=== PATIENT | male | born 1980 | race Caucasian/White ===

== ENCOUNTER 2022-03-07 13:44 | Emergency (ER) | payer MEDICAID, SELFPAY ==
--- NOTE | ~2022-03-07 | XR_ITS ---
EXAMINATION: XR KNEE, LEFT CLINICAL INFORMATION: Knee injury COMPARISON: None TECHNIQUE: Four views of the left knee. FINDINGS: Bones and soft tissues are normal. No fracture or joint effusion. Alignment is anatomic. Joint spaces are well maintained. No abnormal soft tissue calcification. XR/XR knee LT 4V IMPRESSION: Normal left knee.
[2022-03-07 14:38] VITALS: BP 126/92; PULSE 82; RESP 18; O2SAT 98; BMI 30.5
--- NOTE | 2022-03-07 14:45 | ED_ITS ---
HPI - Extremity Injury (Lower) General Chief Complaint: Extremity Injury, Lower Stated Complaint: l knee inj at work Time Seen by Provider: 03/07/22 17:05 Source: patient Mode of arrival: ambulatory Limitations: no limitations History of Present Illness HPI Narrative: 41 yold male presents to ED for left knee pain after injury that occurred on work on Friday. Patient states his left knee by accident with hammer. Patient denies any other trauma. Related Data Previous Rx's Medication Instructions Recorded naproxen 500 mg tablet 500 mg PO BID PRN pain 7 days #14 03/07/22 tabs prednisone 20 mg tablet 40 mg PO DAILY 5 days #10 tabs 03/07/22 Allergies Allergy/AdvReac Type Severity Reaction Status Date / Time No Known Allergies Allergy Verified 03/07/22 16:07 Review of Systems Review of Systems: left knee pain Yes all other systems are reviewed and are negative [facility] Social History Social History Advance Directives: No Advance Directives Information Provided: No Physical Exam Vital Signs: Vital Signs: Last Vital Signs Pulse 82 03/07/22 14:38 Resp 18 03/07/22 14:38 BP 126/92 H 03/07/22 14:38 Pulse Ox 98 03/07/22 14:38 O2 Del Method 03/07/22 14:38 BMI result Body Mass Index 30.5 Const: General: cooperative, healthy appearing, comfortable, no acute distress, well developed, alert, awake and Physically active Orientation/co nsciousness: oriented to time and patient oriented x3 HEENT: Head: Yes normal to inspection, Yes No palpable skull fracture present, Yes normocephalic, Yes atraumatic and No abrasion Eyes: General: appearance normal, both eyes and all related structures Neck: Neck: Yes normal visual inspection, Yes full ROM, Yes no lymphaden opathy, Yes no meningeal signs, Yes trachea midline, Yes supple, No anterior neck swelling and No tender Chest: Chest palpation & inspection: normal inspection of the chest and normal palpation of entire chest wall Resp: Effort & Inspection: normal respiratory effort and able to speak in com plete sentences Auscultation: clear to auscultation bilaterally Cardio: Jugular venous distension: no JVD Heart sounds: S1 normal heart sound present and S2 normal heart sound present GI: Inspection: Yes normal to inspection and No abdominal wall ecchymosis Palpation (GI): Soft to palpation, not firm, nontender, no guarding and not rigid : General: No CVA tenderness and Yes no CVA tenderness Back/Spine/Pelvis: Back: no CVA tenderness, No CVA tenderness and No back tenderness Skin: General skin exam: no rashes or lesions noted and elasticity normal Neuro: General: oriented to time, patient oriented x3, gait normal, tone normal and no meningeal signs Extrem: General: Yes normal to inspection and Yes full ROM Knee images: 1. Tenderness on palpation. Negative for swelling, erythema, or deformity. Complete range of motion. Motor/neuro/vascular exam intact Psych: Appearance: grossly normal, well kempt and not disheveled Course Course Course Narrative: RME: patient presents for left knee injury at work involving a hammer. Patient denies any other trauma. Xray ordered Reevaluation(s) Reevaluation #1: Xray normal. patient discharged with pain meds and informed to follow up with pCP for possible MRI if no improvement Time: 17:07 Discharge Plan Discharge Clinical Impression: Knee sprain Patient Disposition: Home, Self-Care Instructions: Knee Sprain (ED) Additional Instructions: Return to the ED immediately for any knee swelling, redness, inability to walk, bluish black discoloration, leg swelling, calf pain, fever, chills, chest pain, shortness of breath, numbness/tingling lower extremity, or any other concerning symptoms. Please follow-up with the primary care provider for re-evaluation for possible MRI if no improvement. Recommend rest, elevation, and ice Prescriptions: New naproxen 500 mg tablet 500 mg PO BID PRN (Reason: pain) 7 Days Qty: 14 0RF prednisone 20 mg tablet 40 mg PO DAILY 5 Days Qty: 10 0RF Stand Alone Forms: Work/School Release Interventions: ED Discharge Assessment Last Done: 03/07/22 17:21 Discharge Date/Time: 03/07/22 17:26 Print Language: Honduran
== END 2022-03-07 17:26 | disposition home or self-care (01) ==
LOC: HO.ED 17:24
PROVIDERS: Emergency Provider Emergency Medicine
DX: S83.92XA Sprain of unspecified site of left knee, initial encounter (principal); W22.8XXA Striking against or struck by other objects, initial encounter; Y93.H3 Activity, building and construction; Y92.61 Building [any] under construction as the place of occurrence of the external cause; Y99.0 Civilian activity done for income or pay
CPT/HCPCS: 73564; 99282; 99283

== ENCOUNTER 2022-05-29 15:43 | Emergency (ER) | payer MEDICAID, SELFPAY ==
--- NOTE | ~2022-05-29 | CT_ITS ---
EXAMINATION: CT ABDOMEN AND PELVIS WITHOUT CONTRAST CLINICAL INFORMATION: Lower abdominal pain COMPARISON: None TECHNIQUE: Multidetector volumetric imaging was performed from the superior aspect of the liver through the pubic symphysis. Sagittal and coronal reformatted images were obtained on the technologist's workstation. This CT examination was performed using dose optimization techniques as appropriate, variously including the following: *Automated exposure control *Adjustment of mA and/or kV according to patient size (this includes techniques or standardized protocols for targeted exams where dose is matched to indication/reason for exam; i.e. extremities or head) *Use of iterative reconstruction technique DLP: 625 mGy-cm FINDINGS: LUNG BASES: The visualized lung bases are unremarkable. LIVER, GALLBLADDER, AND BILIARY TREE: Liver is at the upper limits normal in size. Normal hepatic attenuation. No liver lesion or biliary ductal dilation. The gallbladder is unremarkable with no evidence of radiopaque gallstones, gallbladder wall thickening, or obvious pericholecystic inflammatory changes. PANCREAS: Unremarkable. SPLEEN: Unremarkable. ADRENAL GLANDS: Unremarkable. KIDNEYS AND URETERS: The kidneys are normal in size, shape, and attenuation. No hydronephrosis, hydroureter, or calculi seen. No perinephric stranding. BLADDER: Unremarkable. GASTROINTESTINAL TRACT: There are prominent but not frankly dilated small bowel loops in the left hemiabdomen with minimal nonspecific adjacent mesenteric edema. No appreciable bowel wall thickening. No pneumatosis. No frankly dilated bowel loops. No colonic wall thickening or pericolonic inflammatory change. Normal appendix. No intra-abdominal free air. Small amount of simple free pelvic fluid/pelvic ascites. ABDOMINAL WALL: No significant hernia is appreciated. LYMPH NODES: No lymphadenopathy. VASCULAR: Unremarkable. PELVIC VISCERA: Unremarkable. OSSEOUS STRUCTURES: No acute fracture or suspicious osseous lesion. CT/CT abdomen pelvis wo IV con IMPRESSION: 1. Prominent but not frankly dilated small bowel loops in the left hemiabdomen with minimal adjacent mesenteric edema. Findings are nonspecific and could be due to mild enteritis or mild ileus. No appreciable bowel wall thickening or pneumatosis. 2. Small amount of simple free pelvic fluid/pelvic ascites. 3. No other acute intra-abdominal process identified.
[2022-05-29 16:18] VITALS: BP 131/84; PULSE 87; RESP 16; TEMP 36.8; O2SAT 97; BMI 29.5
--- NOTE | 2022-05-29 16:20 | ED_ITS ---
HPI - Abdominal Pain General Chief Complaint: Abdominal Pain <NADEEM Morelos - Last Filed: 05/29/22 16:24> Stated Complaint: acid reflux, stomachache <NADEEM Morelos - Last Filed: 05/29/22 16:24> Time Seen by Provider: 05/29/22 20:49 <NADEEM Morelos - Last Filed: 05/29/22 16:24> Source: patient <Rosa Landers MD - Last Filed: 05/29/22 21:45> Mode of arrival: ambulatory <Rosa Landers MD - Last Filed: 05/29/22 21:45> History of Present Illness HPI narrative: 41-year-old male who has been experiencing intermittent crampy abdominal discomfort that is not associated with food intake/fever/chills/nausea/vo miting/diarrhea/dysuria. <Rosa Landers MD - Last Filed: 05/29/22 21:45> Related Data Home Medications: Previous Rx's Medication Instructions Recorded naproxen 500 mg tablet 500 mg PO BID PRN pain 7 days #14 03/07/22 tabs prednisone 20 mg tablet 40 mg PO DAILY 5 days #10 tabs 03/07/22 omeprazole 40 mg capsule,delayed 40 mg PO DAILY #30 caps 05/29/22 release <NADEEM Morelos - Last Filed: 05/29/22 16:24> Allergies/Adverse Reactions: Allergies Allergy/AdvReac Type Severity Reaction Status Date / Time No Known Allergies Allergy Verified 03/07/22 16:07 <NADEEM Morelos - Last Filed: 05/29/22 16:24> Review of Systems Review of Systems Pertinent positives and negatives as stated in HPI <Rosa Landers MD - Last Filed: 05/29/22 21:45> PMFSH Past Medical History Source: nursing notes reviewed <Rosa Landers MD - Last Filed: 05/29/22 21:45> Social History Social History: Social History Advance Directives: No Advance Directives Information Provided: No <NADEEM Morelos - Last Filed: 05/29/22 16:24> Physical Exam ED Vital Signs: Vital Signs - 24 hr 05/29/22 16:18 Temperature 98.2 F Pulse Rate 87 Respiratory Rate 16 Blood Pressure 131/84 Pulse Oximetry 97 Oxygen Delivery Method Room Air BMI result Body Mass Index 29.5 <NADEEM Morelos - Last Filed: 05/29/22 16:24> Vital Signs - 24 hr 05/29/22 16:18 Temperature 98.2 F Pulse Rate 87 Respiratory Rate 16 Blood Pressure 131/84 Pulse Oximetry 97 Oxygen Delivery Method Room Air BMI result Body Mass Index 29.5 VITAL SIGNS: Reviewed. GENERAL: Well developed, well nourished, in no acute distress. HEAD: Normocephalic/atraumatic EYES: PERRLA, EOMI LUNGS: Normal breath sounds. No adventitious sounds or accessory muscle use. SpO2<97> CARDIOVASCULAR: Regular rate and rhythm without noted murmurs ABDOMEN: Soft, non-tender, non-distended with bowel sounds. MUSCULOSKELETAL: No tenderness, deformities, or effusions noted on gross inspection. EXTREMITIES: No cyanosis, clubbing or edema. SKIN: Inspection of the skin reveals no rashes NEUROLOGIC: Alert and oriented x 4. Strength and sensation to light touch were grossly intact x 4. <Rosa Landers MD - Last Filed: 05/29/22 21:45> Course Course Course Narrative: RME - 41 [id number] presenting today with complaints of right lower abdominal pain since yesterday. He describes a fullness sensation to his right lower abdomen, with episodes of sharp right lower abdominal pain. No constipation or diarrhea. No urinary symptoms. No fevers, nausea or vomiting. No hx of abdominal surgeries. Abdomen is soft, with mild tenderness to the right lower abdomen. Labs and CT abdomen w/o contrast ordered. VSS in triage. Patient stable to be sent back to the waiting room until a room in the main ER becomes available. <NADEEM Morelos - Last Filed: 05/29/22 16:24> Medical Decision Making Medical Decision Making MDM Narrative: 41-year-old male with history and clinical presentation along with review of all investigations my interpretation is that this patient has mild gastroenteritis with likely concomitant gastritis. He received a GI cocktail but is otherwise been afebrile and no evidence to suggest SBO/appendicitis/renal colic. All results discussed with him at bedside. After receiving the medication he is feeling better. <Rosa Landers MD - Last Filed: 05/29/22 21:45> Differential Diagnosis Differential Diagnoses: The differential diagnosis associated with the presentation includes <Rosa Landers MD - Last Filed: 05/29/22 21:45> Please see the discussion above <Rosa Landers MD - Last Filed: 05/29/22 21:45> Lab Data MDM Lab Attestation statement: I reviewed the patient's lab results. <Rosa Landers MD - Last Filed: 05/29/22 21:45> Please see the discussion above <Rosa Landers MD - Last Filed: 05/29/22 21:45> Result Diagrams: 05/29/22 16:31 05/29/22 16:31 <NADEEM Morelos - Last Filed: 05/29/22 16:24> Labs: Lab Results 05/29/22 05/29/22 Range/Units 16:31 16:31 WBC 6.8 (4.8-10.8) X10*3/uL RBC 5.24 (4.60-5.80) X10*6/uL Hgb 15.6 (14.0-18.0) g/dl Hct 43.3 (42.0-52.0) % MCV 82.6 (80.0-98.0) fL MCH 29.8 (27.0-33.0) pg MCHC 36.0 (31.0-36.0) g/dl RDW 11.9 (11.0-16.0) % Plt Count 240 (160-400) X10*3/uL MPV 8.4 L (9.4-12.4) fL Immature Gran % (Auto) 0.3 (0.0-0.4) % Neut % (Auto) 62.7 (45-73) % Lymph % (Auto) 26.6 (20-40) % Isabella % (Auto) 8.5 (2-11) % Eos % (Auto) 1.6 (0-4) % Baso % (Auto) 0.3 (0-2) % Lymph # (Auto) 1.8 (1.2-4.9) X10*3/uL Isabella # (Auto) 0.6 (0.1-1.2) X10*3/uL Eos # (Auto) 0.1 (0.0-0.4) X10*3/uL Baso # (Auto) 0.0 (0.0-0.2) X10*3/uL Abs Immat Gran (auto) 0.02 (0.00-0.03) X10*3/uL Absolute Neuts (auto) 4.3 (2.0-8.3) x10*3/uL Absolute Nucleated RBC 0.000 (0.0-0.012) X10*3/uL Nucleated RBC % (auto) 0.0 (0.0-0.2) /100WBC Sodium 141 (135-145) mmol/L Potassium 3.9 (3.3-5.1) mmol/L Chloride 107 (96-108) mmol/L Carbon Dioxide 27 (22-29) mmol/L Anion Gap 11 L (12-20) BUN 13 (9-16) mg/dL Creatinine 1.20 (0.5-1.4) mg/dL Estim Creat Clear Calc 97.7 Estimated GFR > 60 Random Glucose 92 (60-115) mg/dL Calcium 9.1 (8.4-10.2) mg/dL Magnesium 2.0 (1.6-2.6) mg/dL Total Bilirubin 0.9 (0.0-1.0) mg/dL Direct Bilirubin 0.2 (0.0-0.5) mg/dL AST 23 (5-37) U/L ALT 35 (0-40) U/L Alkaline Phosphatase 100 (39-117) U/L Total Protein 6.8 (6.5-8.0) g/dL Albumin 4.3 (3.5-5.0) g/dL Lipase 11 (8-78) U/L <NADEEM Morelos - Last Filed: 05/29/22 16:24> Lab Results 05/29/22 05/29/22 Range/Units 16:31 16:31 WBC 6.8 (4.8-10.8) X10*3/uL RBC 5.24 (4.60-5.80) X10*6/uL Hgb 15.6 (14.0-18.0) g/dl Hct 43.3 (42.0-52.0) % MCV 82.6 (80.0-98.0) fL MCH 29.8 (27.0-33.0) pg MCHC 36.0 (31.0-36.0) g/dl RDW 11.9 (11.0-16.0) % Plt Count 240 (160-400) X10*3/uL MPV 8.4 L (9.4-12.4) fL Immature Gran % (Auto) 0.3 (0.0-0.4) % Neut % (Auto) 62.7 (45-73) % Lymph % (Auto) 26.6 (20-40) % Isabella % (Auto) 8.5 (2-11) % Eos % (Auto) 1.6 (0-4) % Baso % (Auto) 0.3 (0-2) % Lymph # (Auto) 1.8 (1.2-4.9) X10*3/uL Isabella # (Auto) 0.6 (0.1-1.2) X10*3/uL Eos # (Auto) 0.1 (0.0-0.4) X10*3/uL Baso # (Auto) 0.0 (0.0-0.2) X10*3/uL Abs Immat Gran (auto) 0.02 (0.00-0.03) X10*3/uL Absolute Neuts (auto) 4.3 (2.0-8.3) x10*3/uL Absolute Nucleated RBC 0.000 (0.0-0.012) X10*3/uL Nucleated RBC % (auto) 0.0 (0.0-0.2) /100WBC Sodium 141 (135-145) mmol/L Potassium 3.9 (3.3-5.1) mmol/L Chloride 107 (96-108) mmol/L Carbon Dioxide 27 (22-29) mmol/L Anion Gap 11 L (12-20) BUN 13 (9-16) mg/dL Creatinine 1.20 (0.5-1.4) mg/dL Estim Creat Clear Calc 97.7 Estimated GFR > 60 Random Glucose 92 (60-115) mg/dL Calcium 9.1 (8.4-10.2) mg/dL Magnesium 2.0 (1.6-2.6) mg/dL Total Bilirubin 0.9 (0.0-1.0) mg/dL Direct Bilirubin 0.2 (0.0-0.5) mg/dL AST 23 (5-37) U/L ALT 35 (0-40) U/L Alkaline Phosphatase 100 (39-117) U/L Total Protein 6.8 (6.5-8.0) g/dL Albumin 4.3 (3.5-5.0) g/dL Lipase 11 (8-78) U/L <Rosa Landers MD - Last Filed: 05/29/22 21:45> Radiology Impression Radiologist Impression: My interpretation is in agreement with radiology's impression of the imaging study. <Rosa Landers MD - Last Filed: 05/29/22 21:45> Medications Administered Discontinued Medications Generic Name Dose Route Start Last Admin Trade Name Freq PRN Reason Stop Dose Admin Al Hydroxide/Mg Hydroxide 30 ml 05/29/22 21:08 05/29/22 21:35 Magnesium Hydrox/Alum Hydrox 30 Ml Oral.Susp PO 05/29/22 21:09 30 ml ONCE ONE Administration Lidocaine HCl 10 ml 05/29/22 21:08 05/29/22 21:35 Lidocaine Hcl Viscous 2 % 15 Ml Solution MUCOUS MEM 05/29/22 21:09 10 ml ONCE ONE Administration <NADEEM Morelos - Last Filed: 05/29/22 16:24> Medications Administered Discontinued Medications Generic Name Dose Route Start Last Admin Trade Name Freq PRN Reason Stop Dose Admin Al Hydroxide/Mg Hydroxide 30 ml 05/29/22 21:08 05/29/22 21:35 Magnesium Hydrox/Alum Hydrox 30 Ml Oral.Susp PO 05/29/22 21:09 30 ml ONCE ONE Administration Lidocaine HCl 10 ml 05/29/22 21:08 05/29/22 21:35 Lidocaine Hcl Viscous 2 % 15 Ml Solution MUCOUS MEM 05/29/22 21:09 10 ml ONCE ONE Administration <Rosa Landers MD - Last Filed: 05/29/22 21:45> Discharge Plan Discharge Clinical Impression: Enteritis, Gastritis <NADEEM Morelos - Last Filed: 05/29/22 16:24> Patient Disposition: Home, Self-Care <NADEEM Morelos - Last Filed: 05/29/22 16:24> Instructions: Gastritis (ED), Diet for Stomach Ulcers and Gastritis (ED), Enteritis (ED) <NADEEM Morelos - Last Filed: 05/29/22 16:24> Additional Instructions: 1. Recommend increasing fluid intake, adhere to a bland diet for proximally 1 week with minimal caffeinated/carbonated for spicy intake. 2. I also recommend using [id number] Maalox for additional symptom relief and I will provide you with a prescription for acid control. 3. Please follow-up with your primary care provider in the next 1-2 days for re- evaluation further outpatient management. Return to the ER for any worsening symptoms. <NADEEM Morelos - Last Filed: 05/29/22 16:24> Prescriptions: New omeprazole 40 mg capsule,delayed release(DR/EC) 40 mg PO DAILY Qty: 30 0RF No Action naproxen 500 mg tablet 500 mg PO BID PRN (Reason: pain) 7 Days Qty: 14 0RF prednisone 20 mg tablet 40 mg PO DAILY 5 Days Qty: 10 0RF <NADEEM Morelos - Last Filed: 05/29/22 16:24> Stand Alone Forms: Work/School Release <NADEEM Morelos - Last Filed: 05/29/22 16:24>
--- OUTSIDE RECORDS SUMMARY | 2022-05-29 16:37 | XMS_ITS | Continuity of Care Document ---
:1980 Author Organization [facility] Address [address] [place] [address]- Care Team Providers Name Role Phone Not on Staff, PCP Primary Care Physician Unavailable [id number] Date(s): 01/05/20 - 01/05/[address] [address]- [facility] Discharge Disposition: A-D/C Walkout Attending Physician: Ember Lawler MD Admitting Physician: Ember Lawler MD Referring Physician: Not on Staff, Referring MD Allergies, Adverse Reactions, Alerts Substance Reaction Severity Status NKA Active Medications cyclobenzaprine 10 mg oral tablet 10 mg, 1, tablet, By Mouth, 3 times a day, PRN, for 10 days, # 30 tablet, Refills 0, Tot. Refills 0,Acute 01/15/20 18:55:00 EDT, for spasm, 01/05/20 18:55:00 EDT, Route to Pharmacy Electronically, [facility]/pharmacy #[id number], 180, cm, 01/05/20 17:53:00 EDT, H... Start Date: 01/05/20 Stop Date: 01/15/20 Status: Orderedibuprofen 600 mg oral tablet 600 mg, 1, tablet, By Mouth, Every 6 hours, PRN, for 30 days, with food or milk, # 90 tablet, Refills 0, Tot. Refills 0, Acute 02/04/20 18:55:00 EDT, Pain , Moderate, 01/05/20 18:55:00 EDT, Route to Pharmacy Electronically, [facility]/pharmacy #[id number], 180, cm... Start Date: 01/05/20 Stop Date: 02/04/20 Status: OrderedLidoderm 5% film 1 film, Topically, Daily, remove patches after 12 hours, # 14 film, 0 Refills, Maintenance, 01/04/2018:55:00 EDT, [facility]/pharmacy #[id number], 1 film Topically Daily,x14 days,Instr:remove patches after 12 hours, 180, cm, 01/05/20 17:53:00 EDT, Height, 88.8, k... Start Date: 01/05/20 Stop Date: 01/19/20 Status: OrderedSuboxone 8 mg-2 mg sublingual film 2 film, Sublingual, Daily, dissolve under the tongue, 0 Refills, Maintenance, 07/13/19 16:59:00 EDT,Film Start Date: 07/13/19 Status: Ordered Vital Signs Most recent to oldest [Reference Range]: 1 Height 180 cm (01/05/20 12:23 PM) Weight 88.8 kg (01/05/20 12:23 PM) Oxygen Saturation [94-100 %] 97 % (01/05/20 12:23 PM) Pulse Rate [55-90 bpm] 68 bpm (01/05/20 12:23 PM) Blood Pressure [90-138/55-84 mm Hg] 129/77 mm Hg (01/05/20 12:23 PM) Respiratory Rate [16-30 br/min] 16 br/min (01/05/20 12:23 PM) Temperature [96.8-100.4 DegF] 98.9 DegF (01/05/20 12:23 PM) Mode of Delivery (Oxygen) Room air (01/05/20 12:23 PM) Dry Weight 88.8 kg (01/05/20 12:23 PM) Weight Obtained Via Standing scale (01/05/20 12:23 PM) Social History Social History Type Response Smoking Status Former smoker; Tobacco user in household: Yes; Type: Cigarettes; Number of years: 2; entered on: 01/05/14 Sex
--- OUTSIDE RECORDS SUMMARY | 2022-05-29 16:37 | XMS_ITS | Continuity of Care Document ---
:1980 Author Organization [facility] Address [address] [place] [address]- Care Team Providers Name Role Phone Not on Staff, PCP Primary Care Physician Unavailable [id number] Date(s): 11/01/19 - 11/01/[address] [address]- [facility] Discharge Disposition: A-D/C Walkout Attending Physician: Mallorie Carrillo MD Admitting Physician: Mallorie Carrillo MD Referring Physician: Not on Staff, Referring MD Allergies, Adverse Reactions, Alerts Substance Reaction Severity Status NKA Active Medications Suboxone 8 mg-2 mg sublingual film 2 film, Sublingual, Daily, dissolve under the tongue, 0 Refills, Maintenance, 07/13/19 16:59:00 EDT,Film Start Date: 07/13/19 Status: Ordered Social History Social History Type Response Smoking Status Former smoker; Tobacco user in household: Yes; Type: Cigarettes; Number of years: 2; entered on: 01/05/14 Sex
--- OUTSIDE RECORDS SUMMARY | 2022-05-29 16:37 | XMS_ITS | Continuity of Care Document ---
:1980 Author Organization [facility] Address [address] [place] [address]- Care Team Providers Name Role Phone Not on Staff, PCP Primary Care Physician Unavailable [id number] Date(s): 07/15/19 - 07/15/[address] [address]- [facility] Encounter Diagnosis Left flank pain, chronic (Final) - 07/15/19 Discharge Disposition: A-D/C Home Attending Physician: Tequila Miranda MD Admitting Physician: Tequila Miranda MD Referring Physician: Not on Staff, Referring MD Allergies, Adverse Reactions, Alerts Substance Reaction Severity Status NKA Active Medications Colace sodium 100 mg oral capsule 100 mg, 1, capsule, By Mouth, 2 times a day, PRN, # 60 capsule, Refills 1, Tot. Refills 1, Maintenance, for constipation, 07/13/19 17:49:00 EDT, Route to Pharmacy Electronically, [facility], 180, cm, 07/13/19 16:58:00 EDT, Height, 89.... Start Date: 07/13/19 Stop Date: 08/02/19 Status: OrderedFlonase 50 mcg/inh nasal spray 1 sprays, Nares, Both, 2 times a day, # 16 Gm, 1 Refills, Maintenance, 07/13/19 17:50:00 EDT, [place],[facility], 1 sprays Nares, Both 2 times a day,x30 days, 180, cm, 07/13/19 16:58:00EDT, Height, 89.4, kg, 07/13/19 16:58:00 EDT, Dry... Start Date: 07/13/19 Stop Date: 09/11/19 Status: OrderedMiraLax oral powder for reconstitution = 17 Gm, By Mouth, Daily, for 14 days, dissolve in water before taking, # 238 Gm, 0 Refills, Acute 07/27/19 17:49:00 EDT, 07/13/19 17:49:00 EDT, REC Powder, [facility], 17 Gm By Mouth Daily,x14 days,Instr:dissolve in water before taki... Start Date: 07/13/19 Stop Date: 07/27/19 Status: OrderedSuboxone 8 mg-2 mg sublingual film 2 film, Sublingual, Daily, dissolve under the tongue, 0 Refills, Maintenance, 07/13/19 16:59:00 EDT,Film Start Date: 07/13/19 Status: Ordered Vital Signs Most recent to oldest [Reference Range]: 1 Height 180 cm (07/15/19 5:02 PM) Weight 90 kg (07/15/19 5:02 PM) Oxygen Saturation [94-100 %] 99 % (07/15/19 5:02 PM) Pulse Rate [55-90 bpm] 55 bpm (07/15/19 5:02 PM) Blood Pressure [90-138/55-84 mm Hg] 158/67 mm Hg *H* (07/15/19 5:02 PM) Respiratory Rate [16-30 br/min] 18 br/min (07/15/19 5:02 PM) Temperature [96.8-100.4 DegF] 98.9 DegF (07/15/19 5:02 PM) Temperature Route Temporal (07/15/19 5:02 PM) Dry Weight 198 kg (07/15/19 5:02 PM) Weight Obtained Via Standing scale (07/15/19 5:02 PM) Dry Weight Obtained Via Standing scale (07/15/19 5:02 PM) Social History Social History Type Response Smoking Status Former smoker; Tobacco user in household: Yes; Type: Cigarettes; Number of years: 2; entered on: 01/05/14 Sex
--- OUTSIDE RECORDS SUMMARY | 2022-05-29 16:37 | XMS_ITS | Continuity of Care Document ---
:1980 Author Organization [facility] Address [address] [place] [address]- Care Team Providers Name Role Phone Not on Staff, PCP Primary Care Physician Unavailable [id number] Date(s): 11/04/19 - 11/04/[address] [address]- [facility] Discharge Disposition: A-D/C Home Attending Physician: Leif Horn MD Admitting Physician: Leif Horn MD Referring Physician: Not on Staff, Referring MD Allergies, Adverse Reactions, Alerts Substance Reaction Severity Status NKA Active Medications LORazepam 1 mg oral tablet 1 tablet = 1 mg, By Mouth, 3 times a day, PRN as needed for anxiety, for 4 days, # 12 tablet, 0 Refills, Acute 11/08/19 12:32:00 EDT, 11/04/19 12:32:00 EDT, Tablet, [facility]/pharmacy #[id number], 180, cm, 11/04/19 11:20:00 EDT, Height, 69.9, kg, 11/04/19 11:20:0... Start Date: 11/04/19 Stop Date: 11/08/19 Status: OrderedSuboxone 8 mg-2 mg sublingual film 2 film, Sublingual, Daily, dissolve under the tongue, 0 Refills, Maintenance, 07/13/19 16:59:00 EDT,Film Start Date: 07/13/19 Status: Ordered Vital Signs Most recent to oldest 1 2 3 [Reference Range]: Height 180 cm 180 cm 180 cm (11/04/19 12:40 PM) (11/04/19 11:20 AM) (11/04/19 1 1:15 AM) Weight 69.9 kg 69.9 kg 69.9 kg (11/04/19 12:40 PM) (11/04/19 11:20 AM) (11/04/19 1 1:15 AM) Oxygen Saturation [94-100 %] 98 % 97 % (11/04/19 12:40 PM) (11/04/19 11:13 AM) Pulse Rate [55-90 bpm] 82 bpm 83 bpm (11/04/19 12:40 PM) (11/04/19 11:13 AM) Body Mass Index [18.5-24.99] 21.57 21.57 (11/04/19 12:40 PM) (11/04/19 11:20 AM) Blood Pressure [90-138/55-84 139/82 mm Hg mm Hg] *H* (11/04/19 11:13 AM) Respiratory Rate [16-30 17 br/min 18 br/min br/min] (11/04/19 12:40 PM) (11/04/19 11:13 AM) Temperature [96.8-100.4 98.6 DegF DegF] (11/04/19: AM) Mode of Delivery (Oxygen) Room air Room air (11/04/19 12:40 PM) (11/04/19 11:13 AM) Blood pressure sites Arm, left (11/04/19 11:13 AM) Temperature Route Oral (11/04/19 11:20 AM) Dry Weight 69.9 kg 69.9 kg 69.9 kg (11/04/19 12:40 PM) (11/04/19 11:20 AM) (11/04/19 1 1:15 AM) Weight Obtained Via Standing scale Standing scale (11/04/19 11:15 AM) (11/04/19 11:13 AM) Dry Weight Obtained Via Standing scale Standing scale (11/04/19 11:15 AM) (11/04/19 11:13 AM) Social History Social History Type Response Smoking Status Former smoker; Tobacco user in household: Yes; Type: Cigarettes; Number of years: 2; entered on: 01/05/14 Sex
--- OUTSIDE RECORDS SUMMARY | 2022-05-29 16:37 | XMS_ITS | Continuity of Care Document ---
:1980 Author Organization [facility] Address [address] [place] [id number]- Care Team Providers Name Role Phone Not on Staff, PCP Primary Care Physician Unavailable [id number] Date(s): 07/13/19 - 07/13/[address] [address]- [facility] Discharge Disposition: A-D/C Home Attending Physician: Tequila [...] 07/13/19 17:49:00 EDT, Route to Pharmacy Electronically, [facility], 180, cm, 07/13/19 16:58:00 EDT, Height, 89.... Start Date: 07/13/19 Stop Date: 08/02/19 Status: OrderedFlonase 50 mcg/inh nasal spray 1 sprays, Nares, Both, 2 times a day, # 16 Gm, 1 Refills, Maintenance, 07/13/19 17:50:00 EDT, [place],[facility], 1 sprays Nares, Both 2 times a day,x30 days, 180, cm, 07/13/19 16:58:00EDT, Height, 89.4, kg, 07/13/19 16:58:00 EDT, Dry... Start Date: 07/13/19 Stop Date: 09/11/19 Status: OrderedMiraLax oral powder for reconstitution = 17 Gm, By Mouth, Daily, for 14 days, dissolve in water before taking, # 238 Gm, 0 Refills, Acute 07/27/19 17:49:00 EDT, 07/13/19 17:49:00 EDT, REC Powder, [facility], 17 Gm By Mouth Daily,x14 days,Instr:dissolve in water before taki... Start Date: 07/13/19 Stop Date: 07/27/19 Status: OrderedSuboxone 8 mg-2 mg sublingual film 2 film, Sublingual, Daily, dissolve under the tongue, 0 Refills, Maintenance, 07/13/19 16:59:00 EDT,Film Start Date: 07/13/19 Status: Ordered Vital Signs Most recent to oldest [Reference Range]: 1 2 Height 180 cm (07/13/19 4:58 PM) Weight 89.4 kg (07/13/19 4:58 PM) Oxygen Saturation [94-100 %] 98 % 98 % (07/13/19 5:45 PM) (07/13/19 4:58 PM) Pulse Rate [55-90 bpm] 86 bpm 90 bpm (07/13/19 5:45 PM) (07/13/19 4:58 PM) Blood Pressure [90-138/55-84 mm Hg] 155/66 mm Hg 148/ 84 mm Hg *H* *H* (07/13/19 5:45 PM) (07/13/19 4:58 PM) Respiratory Rate [16-30 br/min] 16 br/min 16 br/mi n (07/13/19 5:45 PM) (07/13/19 4:58 PM) Temperature [96.8-100.4 DegF] 98.9 DegF 98.6 DegF (07/13/19 5:45 PM) (07/13/19 4:58 PM) Mode of Delivery (Oxygen) Room air Room air (07/13/19 5:45 PM) (07/13/19 4:58 PM) Blood pressure sites Arm, left (07/13/19 4:58 PM) Temperature Route Oral (07/13/19 4:58 PM) Dry Weight 89.4 kg (07/13/19 4:58 PM) Weight Obtained Via Standing scale (07/13/19 4:58 PM) Dry Weight Obtained Via Standing scale (07/13/19 4:58 PM) Social History Social History Type Response Smoking Status Former smoker; Tobacco user in household: Yes; Type: Cigarettes; Number of years: 2; entered on: 01/05/14 Sex
--- OUTSIDE RECORDS SUMMARY | 2022-05-29 16:37 | XMS_ITS | Continuity of Care Document ---
:1980 Author Organization [facility] Address [address] [place] [address]- Care Team Providers Name Role Phone Not on Staff, PCP Primary Care Physician Unavailable [id number] Date(s): 09/18/21 - 09/19/[address] [address]- Discharge Disposition: A-D/C Home Attending Physician: Ember Lawler MD Admitting Physician: Ember Lawler MD Referring Physician: Not on Staff, Referring MD Allergies, Adverse Reactions, Alerts No Known Allergies Medications Suboxone 8 mg-2 mg sublingual film 2 film, Sublingual, Daily, dissolve under the tongue, 0 Refills, Maintenance, 07/13/19 16:59:00 EDT,Film Start Date: 07/13/19 Status: OrderedWellbutrin By Mouth, 0 Refills, Maintenance, 09/18/21 12:15:00 EDT, Partial fill upon patient request if the prescription is for a schedule II opioid drug. Start Date: 09/18/21 Status: Ordered Vital Signs Most recent to oldest 1 2 3 [Reference Range]: Height 182 cm 182 cm 182 cm (09/18/21 9:02 PM) (09/18/21 7:38 PM) (09/18/21 12: 11 PM) Weight 89.9 kg 89.9 kg 89.9 kg (09/18/21 9:02 PM) (09/18/21 7:38 PM) (09/18/21 12: 11 PM) Oxygen Saturation [94-100 %] 99 % 100 % 97 % (09/18/21 9:02 PM) (09/18/21 7:38 PM) (09/18/21 5:5 5 PM) Pulse Rate [55-90 bpm] 82 bpm 75 bpm 74 bpm (09/18/21 9:02 PM) (09/18/21 7:38 PM) (09/18/21 5:5 5 PM) Body Mass Index [18.5-24.99] 27.14 27.14 *H* *H* (09/18/21 9:02 PM) (09/18/21 7:38 PM) Blood Pressure [90-138/55-84 147/87 mm Hg 141/104 mm Hg 139 /86 mm Hg mm Hg] *H* *H* *H* (09/18/21 9:02 PM) (09/18/21 7:38 PM) (09/18/21 5:5 5 PM) Respiratory Rate [16-30 18 br/min 18 br/min 18 br/mi n br/min] (09/18/21 9:02 PM) (09/18/21 7:38 PM) (09/18/21 5:5 5 PM) Temperature [96.8-100.4 DegF] 97.9 DegF 97.3 DegF 98 .1 DegF (09/18/21 9:02 PM) (09/18/21 7:38 PM) (09/18/21 2:0 0 PM) Mode of Delivery (Oxygen) Room air Room air Room a ir (09/18/21 9:02 PM) (09/18/21 7:38 PM) (09/18/21 5:5 5 PM) Blood pressure sites Arm, right Arm, right Arm, left (09/18/21 9:02 PM) (09/18/21 7:38 PM) (09/18/21 5:5 5 PM) Temperature Route Oral Oral Oral (09/18/21 9:02 PM) (09/18/21 7:38 PM) (09/18/21 2:0 0 PM) Dry Weight 89.9 kg 89.9 kg 89.9 kg (09/18/21 9:02 PM) (09/18/21 7:38 PM) (09/18/21 12: 11 PM) Dry Weight Obtained Via Standing scale (09/18/21 12:11 PM) Social History Social History Type Response Smoking Status Former smoker; Tobacco user in household: Yes; Type: Cigarettes; Number of years: 2; entered on: 01/05/14 Sex
--- OUTSIDE RECORDS SUMMARY | 2022-05-29 16:37 | XMS_ITS | Continuity of Care Document ---
:1980 Author Organization [facility] Address [address] [place] [id number]- Care Team Providers Name Role Phone Not on Staff, PCP Primary Care Physician Unavailable [place] [facility] [place] 11/07/[address] [address] Discharge Disposition: A-D/C Home Attending Physician: Vikki Ortega MD Admitting Physician: Vikki Ortega MD Referring Physician: Vikki Ortega MD Allergies, Adverse Reactions, Alerts No Known Allergies Medications busPIRone 7.5 mg oral tablet 1 tablet = 7.5 mg, By Mouth, Daily, 0 Refills, Maintenance, 11/05/21 16:32:00 EDT, Partial fill uponpatient request if the prescription is for a schedule II opioid drug. Start Date: 11/05/21 Status: OrderedoxyCODONE 5 mg oral tablet 5 mg, Tablet, By Mouth, Every 6 hours, PRN for Pain , Moderate, Routine, 11/06/21 19:01:00 EDT Start Date: 11/06/21 Stop Date: 11/07/21 Status: DiscontinuedSuboxone 8 mg-2 mg sublingual film 2 film, [...] Height 180 cm 180 cm 180 cm (11/07/21 4:14 AM) (11/06/21 11:37 PM) (11/06/21 8:22 PM) Weight 93.4 kg 92.9 kg 86.5 kg (11/06/21 8:22 PM) (11/06/21 12:35 PM) (11/05/21 5:05 PM) Oxygen Saturation [94-100 98 % 95 % 98 % %] (11/07/21 11:00 AM) (11/07/21 7:00 AM) (11/07/21 4:14 AM) Pulse Rate [55-90 bpm] 90 bpm 85 bpm 91 bpm (11/07/21 11:00 AM) (11/07/21 7:00 AM) *H* (11/07/21 4:14 AM) Body Mass Index 28.67 26.7 [18.5-24.99] *H* *H* (11/06/21 12:35 PM) (11/05/21 5:05 PM) Blood Pressure 135/86 mm Hg 129/78 mm Hg 138/90 mm Hg [90-138/55-84 mm Hg] (11/07/21 11:00 AM) (11/07/21 7:00 AM) (11/07/21 4:14 AM) Respiratory Rate [16-30 18 br/min 18 br/min 18 br/mi n br/min] (11/07/21 11:00 AM) (11/07/21 10:01 AM) (11/07/21 7:00 AM) Temperature [96.8-100.4 97.4 DegF 97.3 DegF 97.1 Deg F DegF] (11/07/21 11:00 AM) (11/07/21 7:00 AM) (11/07/21 4:14 AM) Liters per Minute 8 L/min 8 L/min (11/06/21 6:00 PM) (11/06/21 5:45 PM) Mode of Delivery (Oxygen) Room air Room air Room a ir (11/07/21 11:00 AM) (11/07/21 7:00 AM) (11/07/21 4:14 AM) Blood pressure sites Arm, left Arm, right Arm, left (11/07/21 11:00 AM) (11/07/21 7:00 AM) (11/07/21 4:14 AM) Temperature Route Oral Oral Oral (11/07/21 11:00 AM) (11/07/21 7:00 AM) (11/07/21 4:14 AM) Dry Weight 92.9 kg 86.5 kg (11/06/21 12:35 PM) (11/05/21 5:05 PM) Weight Obtained Via Bed scale Standing scale Patient/fami ly stated (11/06/21 8:22 PM) (11/06/21 12:35 PM) (11/05/21 5:05 PM) Dry Weight Obtained Via Standing scale Patient/family stated (11/06/21 12:35 PM) (11/05/21 5:05 PM) Social History Social History Type Response Smoking Status Former smoker; Tobacco user in household: Yes; Type: Cigarettes; Number of years: 2; entered on: 01/05/14 Sex
--- OUTSIDE RECORDS SUMMARY | 2022-05-29 16:37 | XMS_ITS | Continuity of Care Document ---
:1980 Author Organization [facility] Address [address] [place] [address]- Care Team Providers Name Role Phone Not on Staff, PCP Primary Care Physician Unavailable [id number] Date(s): 10/07/19 - 10/07/[address] [address]- [facility] Encounter Diagnosis Chest pain (Final) - 10/07/19 Panic disorder (Final) - 10/07/19 Discharge Disposition: A-D/C Home Attending Physician: Redd Ford MD Admitting Physician: Redd Ford MD Referring Physician: Not on Staff, Referring MD Allergies, Adverse Reactions, Alerts Substance Reaction Severity Status NKA Active Medications Colace sodium 100 mg oral capsule 100 mg, 1, capsule, By Mouth, 2 times a day, PRN, # 60 capsule, Refills 1, Tot. Refills 1, Maintenance, for constipation, 07/13/19 17:49:00 EDT, Route to Pharmacy Electronically, [facility], 180, cm, 07/13/19 16:58:00 EDT, Height, 89.... Start Date: 07/13/19 Stop Date: 08/02/19 Status: OrderedFlonase 50 mcg/inh nasal spray 1 sprays, Nares, Both, 2 times a day, # 16 Gm, 1 Refills, Maintenance, 07/13/19 17:50:00 EDT, [place],[facility], 1 sprays Nares, Both 2 times a day,x30 days, 180, cm, 07/13/19 16:58:00EDT, Height, 89.4, kg, 07/13/19 16:58:00 EDT, Dry... Start Date: 07/13/19 Stop Date: 09/11/19 Status: OrderedSuboxone 8 mg-2 mg sublingual film 2 film, Sublingual, Daily, dissolve under the tongue, 0 Refills, Maintenance, 07/13/19 16:59:00 EDT,Film Start Date: 07/13/19 Status: Ordered Vital Signs Most recent to oldest [Reference Range]: 1 2 Height 180 cm 180 cm (10/07/19 8:30 PM) (10/07/19 4:56 PM) Weight 92.8 kg (10/07/19 4:56 PM) Oxygen Saturation [94-100 %] 99 % 97 % (10/07/19 8:30 PM) (10/07/19 4:56 PM) Pulse Rate [55-90 bpm] 64 bpm 75 bpm (10/07/19 8:30 PM) (10/07/19 4:56 PM) Blood Pressure [90-138/55-84 mm Hg] 153/87 mm Hg 142/ 85 mm Hg *H* *H* (10/07/19 8:30 PM) (10/07/19 4:56 PM) Respiratory Rate [16-30 br/min] 22 br/min (10/07/19 4:56 PM) Temperature [96.8-100.4 DegF] 98.3 DegF (10/07/19 4:56 PM) Mode of Delivery (Oxygen) Room air Room air (10/07/19 8:30 PM) (10/07/19 4:56 PM) Blood pressure sites Arm, left Arm, left (10/07/19 8:30 PM) (10/07/19 4:56 PM) Temperature Route Oral (10/07/19 4:56 PM) Dry Weight 92.8 kg (10/07/19 4:56 PM) Social History Social History Type Response Smoking Status Former smoker; Tobacco user in household: Yes; Type: Cigarettes; Number of years: 2; entered on: 01/05/14 Sex
--- OUTSIDE RECORDS SUMMARY | 2022-05-29 16:37 | XMS_ITS | Continuity of Care Document ---
:1980 Author Organization [facility] Address [address] [place] [address]- Care Team Providers Name Role Phone Not on Staff, PCP Primary Care Physician Unavailable [id number] Date(s): 10/13/19 - 10/13/[address] [address]- [facility] Discharge Disposition: A-D/C Home Attending Physician: Wander Morley DO Admitting Physician: Wander Morley DO Referring Physician: Not on Staff, Referring MD Allergies, Adverse Reactions, Alerts Substance Reaction Severity Status NKA Active Medications LORazepam 1 mg oral tablet 1 tablet = 1 mg, By Mouth, 3 times a day, PRN as needed for anxiety, # 12 tablet, 0 Refills, Acute 10/18/19 8:00:00 EDT, 10/13/19 20:32:00 EDT, Tablet, [id number], 180, cm, 10/13/19 19:01:00 EDT, Height, 92.4, kg, 10/13/19 19:01:00 EDT, Dry We... Start Date: 10/13/19 Stop Date: 10/18/19 Status: OrderedSuboxone 8 mg-2 mg sublingual film 2 film, Sublingual, Daily, dissolve under the tongue, 0 Refills, Maintenance, 07/13/19 16:59:00 EDT,Film Start Date: 07/13/19 Status: Ordered Vital Signs Most recent to oldest [Reference Range]: 1 2 Height 180 cm 180 cm (10/13/19 8:48 PM) (10/13/19 7:01 PM) Weight 92.4 kg 92.4 kg (10/13/19 8:48 PM) (10/13/19 7:01 PM) Oxygen Saturation [94-100 %] 99 % 99 % (10/13/19 8:48 PM) (10/13/19 7:01 PM) Pulse Rate [55-90 bpm] 75 bpm 90 bpm (10/13/19 8:48 PM) (10/13/19 7:01 PM) Body Mass Index [18.5-24.99] 28.52 *H* (10/13/19 8:48 PM) Blood Pressure [90-138/55-84 mm Hg] 137/71 mm Hg 145/ 93 mm Hg (10/13/19 8:48 PM) *H* (10/13/19 7:01 PM) Respiratory Rate [16-30 br/min] 16 br/min 16 br/mi n (10/13/19 8:48 PM) (10/13/19 7: PM) Temperature [96.8-100.4 DegF] 98.5 DegF (10/13/19 7: PM) Mode of Delivery (Oxygen) Room air Room air (10/13/19 8:48 PM) (10/13/19 7:01 PM) Blood pressure sites Arm, left Arm, right (10/13/19 8:48 PM) (10/13/19 7:01 PM) Temperature Route Oral (10/13/19 7:01 PM) Dry Weight 92.4 kg 92.4 kg (10/13/19 8:48 PM) (10/13/19 7:01 PM) Dry Weight Obtained Via Standing scale (10/13/19 7:01 PM) Social History Social History Type Response Smoking Status Former smoker; Tobacco user in household: Yes; Type: Cigarettes; Number of years: 2; entered on: 01/05/14 Sex
--- OUTSIDE RECORDS SUMMARY | 2022-05-29 16:37 | XMS_ITS | Continuity of Care Document ---
:1980 Author Organization [facility] Address [address] [place] [address]- Care Team Providers Name Role Phone Not on Staff, PCP Primary Care Physician Unavailable [place] [facility] [place]s): 10/10/21 - 11/09/[address] [id number] Attending Physician: Vikki Ortega MD Admitting Physician: Vikki Ortega MD Allergies, Adverse Reactions, Alerts No Known Allergies Medications busPIRone 7.5 mg oral tablet 1 tablet = 7.5 mg, By Mouth, Daily, 0 Refills, Maintenance, 11/05/21 16:32:00 EDT, Partial fill uponpatient request if the prescription is for a schedule II opioid drug. Start Date: 11/05/21 Status: OrderedSuboxone 8 mg-2 mg sublingual film 2 film, Sublingual, Daily, dissolve under the tongue, 0 Refills, Maintenance, 07/13/19 16:59:00 EDT,Film Start Date: 07/13/19 Status: OrderedWellbutrin By Mouth, 0 Refills, Maintenance, 09/18/21 12:15:00 EDT, Partial fill upon patient request if the prescription is for a schedule II opioid drug. Start Date: 09/18/21 Status: Ordered Social History Social History Type Response Smoking Status Former smoker; Tobacco user in household: Yes; Type: Cigarettes; Number of years: 2; entered on: 01/05/14 Sex
[2022-05-29 16:38] LABS: MANUAL DIFF FLAG NO
[2022-05-29 16:41] LABS: Basophils Percent Auto 0.3 % (0-2); Eosinophils Absolute Auto 0.1 X10*3/uL (0.0-0.4); Eosinophils Percent Auto 1.6 % (0-4); Hematocrit 43.3 % (42.0-52.0); Hemoglobin 15.6 g/dl (14.0-18.0); Imm Gran Abs Auto 0.02 X10*3/uL (0.00-0.03); Imm Gran Pct Auto 0.3 % (0.0-0.4); Lymphocytes Absolute Auto 1.8 X10*3/uL (1.2-4.9); Lymphocytes Percent Auto 26.6 % (20-40); Mean Corpuscular Hemoglobin 29.8 pg (27.0-33.0); Mean Corpuscular Volume 82.6 fL (80.0-98.0); Mean Platelet Volume 8.4 fL (9.4-12.4); Monocytes Absolute Auto 0.6 X10*3/uL (0.1-1.2); Monocytes Percent Auto 8.5 % (2-11); Neutrophils Absolute Auto 4.3 x10*3/uL (2.0-8.3); Neutrophils Percent Auto 62.7 % (45-73); Platelet Count 240 X10*3/uL (160-400); Red Blood Count 5.24 X10*6/uL (4.60-5.80); Red Cell Distribution Width 11.9 % (11.0-16.0); White Blood Count 6.8 X10*3/uL (4.8-10.8)
[2022-05-29 17:01] LABS: Alanine Aminotransferase 35 U/L (0-40); Albumin Level 4.3 g/dL (3.5-5.0); Alkaline Phosphatase 100 U/L (39-117); Anion Gap 11 (12-20); Aspartate Amino Transferase 23 U/L (5-37); Bilirubin Direct 0.2 mg/dL (0.0-0.5); Bilirubin Total 0.9 mg/dL (0.0-1.0); Blood Urea Nitrogen 13 mg/dL (9-16); Calcium 9.1 mg/dL (8.4-10.2); Carbon Dioxide 27 mmol/L (22-29); Chloride 107 mmol/L (96-108); Creatinine Clr Calc Pharmacy 97.7; Estimated Glomerular Filt Rate > 60; Glucose Random 92 mg/dL (60-115); Lipase 11 U/L (8-78); Potassium 3.9 mmol/L (3.3-5.1); Sodium 141 mmol/L (135-145); Total Protein 6.8 g/dL (6.5-8.0)
[2022-05-29] MEDS: Lidocaine HCl Viscous 2 % 15 ML SOLUTION 10 ML MUCOUS MEM (21:35)
[2022-05-29] MEDS: Magnesium Hydrox/Alum Hydrox 30 ML ORAL.SUSP PO (21:35)
== END 2022-05-29 22:07 | disposition home or self-care (01) ==
PROVIDERS: Physician Assistant; Emergency Provider Student in an Organized Health Care Education/Training Program
DX: K52.9 Noninfective gastroenteritis and colitis, unspecified (principal); K29.70 Gastritis, unspecified, without bleeding; Z79.899 Other long term (current) drug therapy
CPT/HCPCS: 36415; 74176; 80048; 80076; 83690; 83735; 85025; 99282; 99284

== ENCOUNTER 2023-05-23 11:12 | Emergency (ER) | payer OTHER, SELFPAY ==
--- NOTE | ~2023-05-23 | CT_ITS ---
EXAMINATION: CT HEAD WITHOUT CONTRAST CLINICAL INFORMATION: Dizziness. COMPARISON: No relevant prior imaging. TECHNIQUE: Contiguous axial imaging was performed from the skull base to vertex without intravenous administration of contrast. This CT examination was performed using dose optimization techniques as appropriate, variously including the following: *Automated exposure control *Adjustment of mA and/or kV according to patient size (this includes techniques or standardized protocols for targeted exams where dose is matched to indication/reason for exam; i.e. extremities or head) *Use of iterative reconstruction technique DLP: 646 mGy-cm FINDINGS: There is questionable loss of oliveira-white matter differentiation within the right frontal operculum. Oliveira-white matter differentiation is otherwise preserved. No acute hemorrhage or abnormal extra axial collection. No intracranial mass effect or midline shift. Lateral and third ventricles are normal. No hydrocephalus. The calvarium and skull base are intact. Mastoid air cells and middle ear cavities are well aerated. No active paranasal sinus disease. CT/CT head/brain wo IV con IMPRESSION: There is questionable loss of oliveira-white matter differentiation within the right frontal operculum. A brain MRI without and with contrast is recommended for better anatomic characterization of this finding. Otherwise unremarkable CT scan of the head.
--- NOTE | ~2023-05-23 | XR_ITS ---
EXAMINATION: XR CHEST CLINICAL INFORMATION: Dizziness COMPARISON: None available. TECHNIQUE: 2 views of the chest were obtained. FINDINGS: Slight interstitial prominence. Mild elevation the right hemidiaphragm. Bilateral low lung volumes. No pneumothorax. Trachea is midline. Cardiac mediastinal silhouette is not enlarged. Aorta demonstrates atherosclerotic calcific patient. No large pleural effusion. Osseous structures are intact. Soft tissues are unremarkable. XR/XR chest 2V IMPRESSION: 1. Slight interstitial prominence. 2. Mild elevation the right hemidiaphragm. 3. Bilateral low lung volumes.
--- NOTE | ~2023-05-23 | MR_ITS ---
EXAMINATION: MR BRAIN WITHOUT AND WITH CONTRAST CLINICAL INFORMATION: Concern for infarct. Difficulty balancing. COMPARISON: CT head 05/23/2023. TECHNIQUE: Multiplanar MR imaging of the brain was attempted. The patient was unable to tolerate the examination and it was terminated prematurely. MR/MR head/brain wo/w con FINDINGS/IMPRESSION: The patient was unable to tolerate this examination due to claustrophobia. This examination is therefore incomplete and the acquired sequences are degraded by patient motion. Grossly no intracranial mass effect or hydrocephalus. No evidence of acute territorial infarct. Midline structures including the cervicomedullary junction are normal.
[2023-05-23 11:27] VITALS: BP 118/64; BP 130/90; PULSE 108; PULSE 86; RESP 18; TEMP 36.4; O2SAT 94; BMI 31.5
--- NOTE | 2023-05-23 11:31 | ED_ITS ---
HPI - General Adult General Chief complaint: Dizziness Stated complaint: DIZZINESS Time Seen by Provider: 05/23/23 11:30 Source: patient and EMS Mode of arrival: EMS Limitations: no limitations History of Present Illness HPI narrative: Patient is a 42 year old assigned male at with no reported medical history presenting to the emergency department today with dizziness and feeling unbalanced. Patient states that he was unloading and loading boxes at work when he became lightheaded. Patient states that he later went to get out of his truck and began to feel off balance. Patient states that his symptoms have since resolved. Patient denies any abdominal pain, nausea, vomiting, fever, chills, blurry vision, double vision, loss of vision, chest pain, difficulty breathing, shortness of breath, back pain, night sweats, pain with urination, increased urinary frequency, increased urinary urgency, blood in his urine or stool, syncope or a near syncopal episode, recent trauma or falls, bowel incontinence, bladder incontinence, bowel retention, bladder retention, or any other complaints at this time. Onset (ago): minute(s) Severity: mild Severity scale (1-10): 3 Relieving factors: none Exacerbating factors: none Associated symptoms: denies other symptoms Treatments prior to arrival: none Related Data Previous Rx's Medication Instructions Recorded naproxen 500 mg tablet 500 mg PO BID PRN pain 7 days #14 03/07/22 tabs prednisone 20 mg tablet 40 mg (2 x 20 mg) PO DAILY 5 days 03/07/22 #10 tabs omeprazole 40 mg capsule,delayed 40 mg PO DAILY #30 caps 05/29/22 release Allergies Allergy/AdvReac Type Severity Reaction Status Date / Time No Known Allergies Allergy Verified 05/23/23 11:27 Review of Systems 2 Constitutional: Constitutional: Reports no additional constitutional complaints, Denies chills, Denies fever(s) and Denies night sweats Eyes: Eyes: Reports no additional eye complaints, Denies blurry vision, Denies change in vision, Denies diplopia, Denies eye discharge, Denies loss of vision and Denies eye pain ENT: Reports dizziness Comments: feeling off balance Cardiovascular: Cardiovascular: Reports no additional cardiovascular complaints, Denies chest pain, Denies lightheadedness, Denies Loss of Consciousness and Denies dyspnea Respiratory: Respiratory: Reports no additional respiratory complaints and Denies dyspnea Gastrointestinal: Gastrointestinal: Reports no additional gastrointestinal complaints, Denies abdominal pain, Denies melena, Denies hematochezia, Denies change in bowel habits and Denies change in stool character Genitourinary: Genitourinary: Reports no additional male genitourinary complaints, Denies hematuria, Denies oliguria, Denies difficulty urinating, Denies dysuria, Denies urinary frequency, Denies urinary hesitancy, Denies urinary incontinence and Denies urinary urgency Musculoskeletal: Musculoskeletal: Reports no additional musculoskeletal complaints, Denies numbness and Denies tingling Neurologic: Reports dizziness, Denies loss of vision, Denies numbness and Denies tingling Psychiatric: Psychiatric: Reports no additional psychiatric complaints Endocrine: Endocrine: Reports no additional endocrine complaints Hematologic/Lymphatic: Hematologic/Lymphatic: Reports no additional hematologic/lymphatic complaints Allergic/Immunologic: Allergic/Immunologic: Reports no additional allergic/immunologic complaints PMFSH Past Medical History Attestation statement: The following information was validated with the patient. Source: old records reviewed and nursing notes reviewed Medical History Depression Anxiety Surgical History History of throat surgery Social History Social History Alcohol intake: never Smoked in Last 30 Days: No Use of substances other than those prescribed or required for medical reasons: Yes Substance Use Type: Marijuana Substance Use Frequency: Daily Advance Directives: No Advance Directives Information Provided: No Physical Exam ED Vital Signs: Vital Signs - 24 hr 05/23/23 11:27 05/23/23 14:04 Temperature 97.5 F Pulse Rate 86 68 Respiratory Rate 18 18 Blood Pressure 118/64 117/74 Pulse Oximetry 94 95 Oxygen Delivery Method Room Air Room Air BMI result Body Mass Index 31.5 Const General: cooperative, no acute distress, alert and awake Nutritional Appearance: well nourished Orientation/consciousness: patient oriented x3 Limitations: no limitations HENMT Head: Yes normal to inspection and Yes atraumatic Ears: hearing grossly normal bilaterally and external ears normal General nose exam: Normal external nose present, no nasal discharge noted and no epistaxis Face and sinus: Yes normal facial exam, No abrasion and No laceration Mouth: Normal oral and palatal mucosa present, no drooling and no muffled voice Eyes General: appearance normal, both eyes and all related structures Periorbital: periorbital findings normal Eyelids: Yes eyelids normal Conjunctivae: conjunctivae normal Pupils: Equal, round and reactive pupils present EOM: EOMs intact bilaterally Neck Neck: Yes normal visual inspection, Yes full ROM and Yes no lymphadenopathy Chest Chest palpation & inspection: normal inspection of the chest Resp Effort & Inspection: normal respiratory effort and able to speak in complete sentences Auscultation: clear to auscultation bilaterally Cardio Rate: regular rate GI Inspection: Yes normal to inspection Neuro General: patient oriented x3 and moves all extremities Cranial nerves: Yes Equal, round and reactive pupils present Cognition (Neuro): normal cognition Motor exam (neuro): 5/5 motor strength present throughout Sensory Exam: Normal double simultaneous stimulation for sensation Coordination: [id number] test normal Extrem General: Yes normal to inspection, Yes full ROM and Yes capillary refill normal Psych Appearance: grossly normal Mental Status: mental status grossly normal Affect: normal affect Attitude: cooperative Thought process: Normal thought process present Thought content: Normal thought content present Insight: Good insight present (Psych) NIH Stroke Scale Internal: Initial- Upon Arrival Time: 11:31 Level of Consciousness: Alert Level of Consciousness Questions: Answers both questions correctly Level of Consciousness Commands: Performs both tasks correctly Best Gaze: Normal Visual: No visual loss Facial Palsy: Normal Motor Arm (Right): No drift Motor Arm (Left): No drift Motor Leg (Right): No drift Motor Leg (Left): No drift Limb Ataxia: Absent Sensory: Normal Best Language: No aphasia Dysarthia: Normal Extinction and Inattention: No abnormality Score: 0 Medications Administered Discontinued Medications Generic Name Dose Route Start Last Admin Trade Name Freq PRN Reason Stop Dose Admin Sodium Chloride 1,000 mls @ 999 mls/hr 05/23/23 11:45 05/23/23 13:05 Ns IV 05/23/23 12:45 Infused .Q1H1M IDALIA Infusion Medical Decision Making Medical Decision Making MDM Narrative: Patient is a 42 year old assigned male at with no reported medical history presenting to the emergency department today after an incident of being unbalanced. Patient's physical exam was unremarkable. Patient's blood work was unremarkable. Patient's urine is pending. Patient's EKG was unremarkable. Patient's chest x-ray showed no acute process. Patient's head CT showed questionable loss of oliveira-white matter differentiation within the right frontal operculum. I spoke to the radiologist who recommended an MR with and without contrast to rule out infarct. I explained my physical exam findings as well as all test results to the patient. I answered all questions asked by the patient. Patient's MRI is pending at this time. Patient will be signed out to overnight KAELYN. Differential Diagnosis Differential Diagnoses: The differential diagnosis associated with the presentation includes Cerebral infarct Dizziness Unsteadiness Vasovagal syncope Near syncope Admission/Observation Consideration of admission/observation: Escalation of care including admission/observation considered Disposition will be determined after MR. Lab Data [facility] Lab Attestation statement: I reviewed the patient's lab results. My interpretation of these results are in the [facility] Rationale portion of this note. 05/23/23 12:02 05/23/23 12:02 Labs: Lab Results 05/23/23 Range/Units 12:02 WBC 6.9 (4.8-10.8) X10*3/uL RBC 5.84 H (4.60-5.80) X10*6/uL Hgb 17.1 (14.0-18.0) g/dl Hct 49.5 (42.0-52.0) % MCV 84.8 (80.0-98.0) fL MCH 29.3 (27.0-33.0) pg MCHC 34.5 (31.0-36.0) g/dl RDW 12.3 (11.0-16.0) % Plt Count 208 (160-400) X10*3/uL MPV 8.6 L (9.4-12.4) fL Immature Gran % (Auto) 0.4 (0.0-0.4) % Neut % (Auto) 73.2 H (45-73) % Lymph % (Auto) 19.9 L (20-40) % [place] % (Auto) 5.4 (2-11) % Eos % (Auto) 1.0 (0-4) % Baso % (Auto) 0.1 (0-2) % Lymph # (Auto) 1.4 (1.2-4.9) X10*3/uL [place] # (Auto) 0.4 (0.1-1.2) X10*3/uL Eos # (Auto) 0.1 (0.0-0.4) X10*3/uL Baso # (Auto) 0.0 (0.0-0.2) X10*3/uL Abs Immat Gran (auto) 0.03 (0.00-0.03) X10*3/uL Absolute Neuts (auto) 5.0 (2.0-8.3) x10*3/uL Absolute Nucleated RBC 0.000 (0.0-0.012) X10*3/uL Nucleated RBC % (auto) 0.0 (0.0-0.2) /100WBC Sodium 141 (135-145) mmol/L Potassium 3.8 (3.3-5.1) mmol/L Chloride 106 (96-108) mmol/L Carbon Dioxide 28 (22-29) mmol/L Anion Gap 11 L (12-20) BUN 13 (9-16) mg/dL Creatinine 1.42 H (0.5-1.4) mg/dL Estim Creat Clear Calc 84.3 Estimated GFR 55 Random Glucose 139 H (60-115) mg/dL Calcium 9.3 (8.4-10.2) mg/dL Magnesium 1.9 (1.6-2.6) mg/dL Total Bilirubin 0.5 (0.0-1.0) mg/dL AST 24 (5-37) U/L ALT 36 (0-40) U/L Alkaline Phosphatase 71 (39-117) U/L Troponin I High Sens < 2.7 (<3.5-35.0) ng/L Total Protein 7.3 (6.5-8.0) g/dL Albumin 4.1 (3.5-5.0) g/dL Influenza Type A (PCR) NEGATIVE (Negative) Influenza Type B (PCR) NEGATIVE (Negative) RSV RNA Qual (PCR) NEGATIVE (Negative) SARS-CoV-2 RNA (RT-PCR) NEGATIVE (Negative) Independent Interpretation I performed an independent interpretation of an: EKG, Plain X-Ray and CT Scan Interpretation: My interpretation is in agreement with the radiologist's impression of these imaging studies. - EXAMINATION: CT HEAD WITHOUT CONTRAST CLINICAL INFORMATION: Dizziness. COMPARISON: No relevant prior imaging. TECHNIQUE: Contiguous axial imaging was performed from the skull base to vertex without intravenous administration of contrast. This CT examination was performed using dose optimization techniques as appropriate, variously including the following: *Automated exposure control *Adjustment of mA and/or kV according to patient size (this includes techniques or standardized protocols for targeted exams where dose is matched to indication/reason for exam; i.e. extremities or head) *Use of iterative reconstruction technique DLP: 646 mGy-cm FINDINGS: There is questionable loss of oliveira-white matter differentiation within the right frontal operculum. Oliveira-white matter differentiation is otherwise preserved. No acute hemorrhage or abnormal extra axial collection. No intracranial mass effect or midline shift. Lateral and third ventricles are normal. No hydrocephalus. The calvarium and skull base are intact. Mastoid air cells and middle ear cavities are well aerated. No active paranasal sinus disease. CT/CT head/brain wo IV con IMPRESSION: There is questionable loss of oliveira-white matter differentiation within the right frontal operculum. A brain MRI without and with contrast is recommended for better anatomic characterization of this finding. Otherwise unremarkable CT scan of the head. Dictated By: Mani Flores MD Signed By: Electronically signed by Mani Flores MD 05/23/23 1229 - EXAMINATION: XR CHEST CLINICAL INFORMATION: Dizziness COMPARISON: None available. TECHNIQUE: 2 views of the chest were obtained. FINDINGS: Slight interstitial prominence. Mild elevation the right hemidiaphragm. Bilateral low lung volumes. No pneumothorax. Trachea is midline. Cardiac mediastinal silhouette is not enlarged. Aorta demonstrates atherosclerotic calcific patient. No large pleural effusion. Osseous structures are intact. Soft tissues are unremarkable. XR/XR chest 2V IMPRESSION: 1. Slight interstitial prominence. 2. Mild elevation the right hemidiaphragm. 3. Bilateral low lung volumes. Dictated By: Shaji Benedict MD Signed By: Electronically signed by Shaji Benedict MD 05/23/23 1330 - Vent. Rate: 081 BPM Atrial Rate: 081 BPM P-R Int: 158 ms QRS Dur: 106 ms QT Int: 380 ms P-R-T Axes: 038 005 002 degrees QTc Int: 441 ms Normal sinus rhythm Normal ECG No previous ECGs available DD/ 1146 Radiology Impression Discussion of test interpretation with radiology: I have reviewed the radiologist's reading. Independent Historian Clinical information obtained from an independent historian. History obtained from or confirmed by: EMS (EMS provided additional history and confirmed the history provided by the patient) Critical Care Time Critical Care Time Critical Care Time: Yes Total Critical Care Time: 45 Attestation: I spent 45 minutes of Critical Care Time with this patient. This does not include time spent on separately reported billable procedures. Discharge Plan Discharge Clinical Impression: Unsteadiness Patient Disposition: Still a Patient Prescriptions: No Action naproxen 500 mg tablet 500 mg PO BID PRN (Reason: pain) 7 Days Qty: 14 0RF prednisone 20 mg tablet 40 mg PO DAILY 5 Days Qty: 10 0RF omeprazole 40 mg capsule,delayed release(DR/EC) 40 mg PO DAILY Qty: 30 0RF
--- NOTE | 2023-05-23 11:32 | ECG_ITS ---
Test Reason : dizziness Blood Pressure : / mmHG Vent. Rate : 081 BPM Atrial Rate : 081 BPM P-R Int : 158 ms QRS Dur : 106 ms QT Int : 380 ms P-R-T Axes : 038 005 002 degrees QTc Int : 441 ms Normal sinus rhythm Normal ECG No previous ECGs available Referred By: Clare Oro Electronically Signed By:John Limon
[2023-05-23] MEDS: 0.9 % Sodium Chloride 1,000 ML 999 ML IV (12:04)
[2023-05-23 12:10] LABS: MANUAL DIFF FLAG NO
[2023-05-23 12:25] LABS: Basophils Percent Auto 0.1 % (0-2); Eosinophils Absolute Auto 0.1 X10*3/uL (0.0-0.4); Hematocrit 49.5 % (42.0-52.0); Hemoglobin 17.1 g/dl (14.0-18.0); Imm Gran Abs Auto 0.03 X10*3/uL (0.00-0.03); Imm Gran Pct Auto 0.4 % (0.0-0.4); Lymphocytes Absolute Auto 1.4 X10*3/uL (1.2-4.9); Lymphocytes Percent Auto 19.9 % (20-40); Mean Corpuscular HGB Conc 34.5 g/dl (31.0-36.0); Mean Corpuscular Hemoglobin 29.3 pg (27.0-33.0); Mean Corpuscular Volume 84.8 fL (80.0-98.0); Mean Platelet Volume 8.6 fL (9.4-12.4); Monocytes Absolute Auto 0.4 X10*3/uL (0.1-1.2); Monocytes Percent Auto 5.4 % (2-11); Neutrophils Percent Auto 73.2 % (45-73); Platelet Count 208 X10*3/uL (160-400); Red Blood Count 5.84 X10*6/uL (4.60-5.80); Red Cell Distribution Width 12.3 % (11.0-16.0); White Blood Count 6.9 X10*3/uL (4.8-10.8)
[2023-05-23 12:26] LABS: Alanine Aminotransferase 36 U/L (0-40); Albumin Level 4.1 g/dL (3.5-5.0); Alkaline Phosphatase 71 U/L (39-117); Anion Gap 11 (12-20); Aspartate Amino Transferase 24 U/L (5-37); Bilirubin Total 0.5 mg/dL (0.0-1.0); Blood Urea Nitrogen 13 mg/dL (9-16); Calcium 9.3 mg/dL (8.4-10.2); Carbon Dioxide 28 mmol/L (22-29); Chloride 106 mmol/L (96-108); Creatinine Clr Calc Pharmacy 84.3; Estimated Glomerular Filt Rate 55; Glucose Random 139 mg/dL (60-115); Magnesium 1.9 mg/dL (1.6-2.6); Potassium 3.8 mmol/L (3.3-5.1); Sodium 141 mmol/L (135-145); Total Protein 7.3 g/dL (6.5-8.0)
--- OUTSIDE RECORDS SUMMARY | 2023-05-23 12:27 | XMS_ITS | Continuity of Care Document ---
Author Name Unknown Organization [facility] Primary Car e [place] Address [address] [place] [address]- Care Team Providers Care Math Teacher Name Role Phone Mekhi Pozo NP Primary Care Physician Encounter [facility] Date(s): 12/18/22 - 02/02/23 [facility] Care [address] [place] [address]- Attending Physician: Mekhi Pozo NP Allergies, Adverse Reactions, Alerts No Known Allergies Medications buPROPion 300 mg/24 hours (XL) oral tablet, extended release 0 Refills, Maintenance, 12/05/22 13:06:00 EDT, Partial fill upon patient request if the prescription is for a schedule II opioid drug. Start Date: 12/05/22 Status: Ordered busPIRone 10 mg oral tablet TAKE 2 TABLETS BY MOUTH TWICE A DAY Start Date: 12/05/22 Status: Ordered LORazepam 0.5 mg oral tablet 1 tablet = 0.5 mg, TAKE 1 TABLET BY MOUTH EVERY DAY NEEDED Start Date: 12/05/22 Status: Ordered olanzapine 15 mg oral tablet TAKE 1 TABLET BY MOUTH EVERYDAY AT BEDTIME Start Date: 12/05/22 Status: Ordered Suboxone 4 mg-1 mg sublingual film 0 Refills, Maintenance, 12/05/22 13:05:00 EDT, Partial fill upon patient request if the prescription is for a schedule II opioid drug. Start Date: 12/05/22 Status: Ordered Social History Social History Type Response Smoking Status Former smoker, quit more than 30 days ago; Interested in cessation: No; Patient wants NRT during admission No;Never; Type: Cigarettes; Exposure to Secondhand Smoke: No; Previous treatment: None; Tobacco user in household: No; Other: 1/2- 1PPD; Number of years: 3; Total pack years: 2; entered on: 12/05/22 Sex Patient Care team information Care Team Personnel Name: Stepan Davenport RN Position: [facility] RN Member Role: Primary Care Nurse Name: Mekhi Pozo NP Position: [facility] PCO Associate Professional Member Role: PCP Address: Address: [address] [place] [address] [place] [address]- Care Team Related Persons Name: ARACELIS CARRANZA Address: [place] [address] Name: ALYSA CARBAJAL Address: home [address] [place] [address]
--- OUTSIDE RECORDS SUMMARY | 2023-05-23 12:27 | XMS_ITS | Continuity of Care Document ---
Author Name Unknown Organization [facility] Address [address] [place] [address]- Care Team Providers Care Fitter / Welder Name Role Phone Not on Staff, PCP Primary Care Physician Unavail able Encounter [facility] Date(s): 05/29/22 - 05/29/[address] [address]- Discharge Disposition: A-D/C Walkout Attending Physician: Jerrell Vaughan DO Admitting Physician: Jerrell Vaughan DO Referring Physician: Not on Staff, Referring MD Allergies, Adverse Reactions, Alerts No Known Allergies Medications busPIRone 7.5 mg oral tablet 1 tablet = 7.5 mg, By Mouth, Daily, 0 Refills, Maintenance, 11/05/21 16:32:00 EDT, Partial fill upon patient request if the prescription is for a schedule II opioid drug. Start Date: 11/05/21 Status: Ordered Suboxone 8 mg-2 mg sublingual film 2 film, Sublingual, Daily, dissolve under the tongue, 0 Refills, Maintenance, 07/13/19 16:59:00 EDT, Film Start Date: 07/13/19 Status: Ordered Wellbutrin By Mouth, 0 Refills, Maintenance, 09/18/21 12:15:00 EDT, Partial fill upon patient request if the prescription is for a schedule II opioid drug. Start Date: 09/18/21 Status: Ordered Vital Signs Most recent to oldest [Reference Range]: 1 2 Height 180 cm (05/29/22 9:58 AM) 180 cm (05/29/22 9:57 AM) Weight 96.4 kg (05/29/22 9:58 AM) 96.4 kg (05/29/22 9:57 AM) Oxygen Saturation [94-100 %] 96 % (05/29/22 11:29 AM) 98 % (05/29/22 9:57 AM) Pulse Rate [55-90 bpm] 89 bpm (05/29/22 11:29 AM) 69 bpm (05/29/22 9:57 AM) Body Mass Index [18.5-24.99 kg/m2] 29.75 kg/m2 *H* (05/29/22 9:57 AM) Blood Pressure [90-138/55-84 mm Hg] 120/ 79mm Hg (05/29/22 11:29 AM) 142/90mm Hg *H* (05/29/22 9:57 AM) Respiratory Rate [16-30 br/min] 17 br/mi n (05/29/22 11:29 AM) 18 br/min (05/29/22 9:57 AM) Temperature [96.8-100.4 DegF] 98.2 DegF (05/29/22 11:29 AM) 98.1 DegF (05/29/22 9:57 AM) Mode of Delivery (Oxygen) Room air (05/29/22 11:29 AM) Room air (05/29/22 9:57 AM) Blood pressure sites Arm, left (05/29/22 11:29 AM) Temperature Route Temporal (05/29/22 11:29 AM) Temporal (05/29/22 9:57 AM) Dry Weight 96.4 kg (05/29/22 9:58 AM) 96.4 kg (05/29/22 9:57 AM) Weight Obtained Via Standing scale (05/29/22 9:57 AM) Social History Social History Type Response Smoking Status Former smoker; Tobac co user in household: Yes; Type: Cigarettes; Number of years: 2; entered on: 01/05/14 Sex Patient Care team information Care Team Personnel Name: Stepan Davenport RN Position: S RN Member Role: Primary Care Nurse Name: Not on Staff, PCP Position: [facility] Physician (General Medicine) Member Role: PCP Name: Malathi Rizvi RN Position: S RN Member Role: Primary Care Nurse Care Team Related Persons Name: DILLON ARACELIS Address: [place] [address] Name: ALYSA CARBAJAL Address: home [address] [place] [address]
--- OUTSIDE RECORDS SUMMARY | 2023-05-23 12:27 | XMS_ITS | Continuity of Care Document ---
Author Name Unknown Organization [facility] Primary Car [address] [place] Address [address] [place] [address]- Care Team Providers Care Fire Services Plumber Name Role Phone Mekhi Pozo NP Primary Care Physician Encounter [facility] Date(s): 01/03/23 - 02/02/23 [facility] Care [place] [address] [place], [place] [address] Attending Physician: Eli Wakefield Admitting Physician: Eli Wakefield Referring Physician: AdmtrEli Allergies, Adverse Reactions, Alerts No Known Allergies [...] Team Personnel Name: Stepan Davenport RN Position: [facility] RN Member Role: Primary Care Nurse Name: Mekhi Pozo NP Position: [facility] PCO Associate Professional Member Role: PCP Address: Address: [address] [place] [address] [place] [address]- Care Team Related Persons Name: ARACELIS CARRANZA Address: [place] [address] Name: ALYSA CARBAJAL Address: home [address] [place] [address]
[2023-05-23 12:31] LABS: Troponin-I High Sensitivity < 2.7 ng/L (<3.5-35.0)
--- NOTE | 2023-05-23 12:41 | PC.NURSE ---
patient a&ox3, c/o ongoing dizziness- neuro intact, iv inserted, labs drawn, nasal swab obtained, ekg performed, specialized language instructor applied- nsr on monitor, vss, ivf hung per order, call hatfield within reach, will continue to monitor
[2023-05-23 12:57] LABS: Influenza A PCR NEGATIVE (Negative); Influenza B PCR NEGATIVE (Negative); Resp Syncy Virus RNA Qual PCR NEGATIVE (Negative); SARS COV2 PCR INHOUSE NEGATIVE (Negative)
[2023-05-23 14:04] VITALS: BP 117/74; PULSE 68; RESP 18; O2SAT 95
--- NOTE | 2023-05-23 14:04 | PC.NURSE ---
Met with patient in ED bed 4 while he is awaiting MRI. Pt is awake, alert and oriented x 3. Skin pink warm and dry. Resp unlabored. Denies N/V. No c/o pain. PERRLA, tongue midline. No facial droop noted. Hand grasp strong/equal. Bilateral equal leg strength/movement. No palmar drift. 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 He told his coworker I don't feel right . C/o dizziness and not feeling well. Denied loss of vision or headache. States that he made it inside of the building but he was sweating and felt like he needed to sit down. He reports that it was hard to stand because he was so dizzy. When asked if it felt like the room was spinning or if he was on a boat, he said neither . I just didn't feel right . Pt reports hx of migraines for which he takes excedrin. Denies headache today. Pt states that there were no symptoms of weakness or dysarthria/dysphagia. Pt reports that he Vapes daily and smokes marijuana occasionally. Denies etoh use. Pt also reported that recently he has returned to the gym 5 days a week. He states that he started taking Testosterone and has been lifting up to 255 pounds. Pt currently awaiting MRI. Aware and agreeable to ED care plan.
[2023-05-23 17:29] VITALS: BP 119/66; PULSE 72; RESP 16; TEMP 36.7; O2SAT 95
== END 2023-05-23 18:04 | disposition home or self-care (01) ==
PROVIDERS: Physician Assistant Medical; Emergency Provider Student in an Organized Health Care Education/Training Program; PCP Nurse Practitioner Family
DX: R26.81 Unsteadiness on feet (principal); R42 Dizziness and giddiness; F41.9 Anxiety disorder, unspecified; Z79.899 Other long term (current) drug therapy; Z11.52 Encounter for screening for COVID-19; Z20.828 Contact with and (suspected) exposure to other viral communicable diseases
CPT/HCPCS: 0241U; 70450; 70553; 71046; 80053; 83735; 84484; 85025; 93005; 96360; 99285

== ENCOUNTER → 2023-05-23 11:32 | Outpatient (BNV) | payer OTHER, SELFPAY | PROVIDERS: Emergency Provider Student in an Organized Health Care Education/Training Program; PCP Nurse Practitioner Family; Visit Provider Internal Medicine Cardiovascular Disease | DX: R26.81 Unsteadiness on feet (principal); R42 Dizziness and giddiness | CPT/HCPCS: 93010 ==

== ENCOUNTER 2023-12-15 11:22 | Emergency (ER) | payer OTHER, SELFPAY ==
--- NOTE | ~2023-12-15 | XR_ITS ---
EXAMINATION: LUMBAR SPINE, SACRUM AND COCCYX CLINICAL INFORMATION: Lumbar back pain radiating down left COMPARISON: CT abdomen pelvis 05/29/2022 TECHNIQUE: 3 views lumbosacral spine, 3 views sacrum and coccyx FINDINGS: No significant abnormality is seen. XR/XR lumbar spine 2-3V IMPRESSION: Negative radiographs of the lumbosacral spine as well as sacrum and coccyx. Electronically signed by: Diomedes Holland MD 12/15/2023 12:38 PM EDT
--- NOTE | ~2023-12-15 | XR_ITS ---
EXAMINATION: LUMBAR SPINE, SACRUM AND COCCYX CLINICAL INFORMATION: Lumbar back pain radiating down left COMPARISON: CT abdomen pelvis 05/29/2022 TECHNIQUE: 3 views lumbosacral spine, 3 views sacrum and coccyx FINDINGS: No significant abnormality is seen. XR/XR sacrum coccyx min 2V IMPRESSION: Negative radiographs of the lumbosacral spine as well as sacrum and coccyx. Electronically signed by: Diomedes Holland MD 12/15/2023 12:38 PM EDT
--- NOTE | 2023-12-15 11:44 | ED.GENADULT ---
HPI - General Adult General Chief complaint: Back Pain/Injury Stated complaint: unable to put pressure on l side Time Seen by Provider: 12/15/23 11:55 Source: patient Mode of arrival: ambulatory Limitations: no limitations History of Present Illness ED Provider: Glenna CHOW narrative: Patient is a 43-year-old male presenting to the emergency department with complaint of left lower back pain for the past 2 and half months. Reports that he is frequently lifting, bending, and twisting for work. He has not been using any [id number] medications for his symptoms. States pain radiates down left leg. Denies fevers. Denies history of cancer, IVDU. Denies saddle anesthesia or bowel or bladder incontinence. States pain has worsened over past 2 days. MD complaint: Back pain Onset (ago): month(s) Location: back Radiation: distal Severity: severe Pain Consistency: constant Associated symptoms: denies other symptoms Treatments prior to arrival: none Related Data Previous Rx's ?Medication ?Instructions ?Recorded naproxen 500 mg tablet 500 mg PO BID PRN pain 7 days #14 03/07/22 tabs prednisone 20 mg tablet 40 mg (2 x 20 mg) PO DAILY 5 days 03/07/22 #10 tabs omeprazole 40 mg capsule,delayed 40 mg PO DAILY #30 caps 05/29/22 release cyclobenzaprine 5 mg tablet 5 mg PO TID PRN muscle spasm #10 12/15/23 tabs lidocaine 5 % topical patch 1 patch topical DAILY #15 ea 12/15/23 prednisone 20 mg tablet 40 mg (2 x 20 mg) PO DAILY #14 tabs 12/15/23 Allergies Allergy/AdvReac Type Severity Reaction Status Date / Time No Known Allergies Allergy Verified 12/15/23 11:48 Review of Systems Review of Systems: As per HPI. Yes all other systems are reviewed and are negative Constitutional: Constitutional: Reports as per HPI [facility] Past Medical History Medical History Depression Anxiety Surgical History History of throat surgery Social History Social History Alcohol intake: never Substance Use Type: Marijuana Advance Directives: No Advance Directives Information Provided: No Do you have a plan to hurt others: No Plan Physical Exam ED Vital Signs: Vital Signs - 24 hr 12/15/23 11:47 Temperature 98 F Pulse Rate 71 Respiratory Rate 16 Blood Pressure 148/62 H Pulse Oximetry 98 Oxygen Delivery Method Room Air BMI result Body Mass Index 28.3 Vital signs have been reviewed and appear to be correct. Blood pressure mildly elevated. Heart rate normal. Respiratory rate normal. Temperature normal. Oxygen saturation normal. Const General: cooperative, healthy appearing and no acute distress Orientation/consciousness: oriented to person, oriented to place, oriented to time and patient oriented x3 Limitations: no limitations HENMT Head: Yes normocephalic and Yes atraumatic Ears: external ears normal General nose exam: Normal external nose present Face and sinus: Yes face symmetric Mouth: oropharynx normal and moist mucous membranes Throat: Yes uvula midline Eyes Pupils: Equal, round and reactive pupils present Neck Neck: Yes normal visual inspection, Yes no meningeal signs and Yes supple Resp Effort & Inspection: normal respiratory effort and able to speak in complete sentences Auscultation: clear to auscultation bilaterally Cardio Rate: regular rate Rhythm: regular rhythm Heart sounds: S1 normal heart sound present and S2 normal heart sound present GI Palpation (GI): Soft to palpation and nontender Auscultation: normoactive bowel sounds General: Yes no CVA tenderness Back/Spine/Pelvis Back: no CVA tenderness Thoracic/Lumbar Spine: thoracic and lumbar spine normal to inspection, thoraco-lumbar ROM normal, straight leg raise negative bilaterally, pain with thoraco-lumbar ROM, No thoracic spinal tenderness and lumbar spinal tenderness Skin General skin exam: elasticity normal and turgor normal Neuro General: oriented to person, oriented to place, oriented to time, patient oriented x3, gait normal, tone normal, moves all extremities, Normal light touch and pain sensation, no meningeal signs, no focal motor deficits, CN's II-XI intact bilaterally and deep tendon reflexes 2+ bilaterally Cranial nerves: Yes Equal, round and reactive pupils present Cognition (Neuro): normal cognition Extrem General: Yes full ROM, Yes no pedal edema and Yes no calf tenderness Psych Mental Status: mental status grossly normal Affect: normal affect Thought process: Normal thought process present Course Course Course Narrative: This is an RME: Additional HPI, ROS, PE not included below will be deferred to primary provider. RME assessment and note performed by: Delfina Denson PA-C This is a 34-psod-edi-male who presents to the ER with complaints of back pain x 2 months. Pain radiates down left leg. No saddle anesthesia, no urinary or bowel retention or incontinence. Plan: xr lumbar/sacrum/coccyx spine Medical Decision Making Medical Decision Making [facility] Narrative: Patient is a 43-year-old male presenting to the emergency department with complaint of left lower back pain for the past 2 and half months. On exam patient is awake, A+Ox3, VS WNL, afebrile, normal neurological exam without focal deficits, physical exam findings as above. Given reported symptoms and physical exam findings, initial differential includes lumbar strain, lumbar radiculopathy, degenerative disc disease, disc herniation, spinal stenosis, spondylosis. Less likely vertebral fracture. Do not suspect malignancy/mass, SEA, cauda equina/cord compression. X-ray lumbar, sacrum, and coccyx notable for no acute abnormalities. My interpretation is in agreement with the radiologist's interpretation. Patient updated on results and all questions answered. Will treat with course of prednisone and muscle relaxer, advised patient to follow-up with PCP as he will likely need physical therapy consult given his the ongoing nature of his symptoms. Return precautions discussed at bedside. Patient verbalized understanding of and agreement with plan. Differential Diagnosis Differential Diagnoses: The differential diagnosis associated with the presentation includes As per MDM. Independent Interpretation I performed an independent interpretation of an: Plain X-Ray Interpretation: X-ray lumbar, sacrum, and coccyx notable for no acute abnormalities. Radiology Impression Discussion of test interpretation with radiology: I have reviewed the radiologist's reading. Radiologist Impression: RDER #: [id number] XR/XR sacrum coccyx min 2V IMPRESSION: Negative radiographs of the lumbosacral spine as well as sacrum and coccyx. External Record Review External record reviewed: Inpatient record, Office record and Outpatient record Prescription Management I considered prescription management with: Pain Medication and Other Discharge Plan Discharge Clinical Impression: Lumbar radiculopathy Patient Disposition: Home, Self-Care Instructions: Lumbar Radiculopathy (ED) Additional Instructions: You were evaluated in the emergency department today for back pain. Your evaluation did not show signs of medical conditions requiring emergent intervention at this time. You have been prescribed prednisone which is a steroid to decrease inflammation. Once you have completed this medication, we recommend that you begin taking naproxen as per package directions. You can take 650 mg of Tylenol every 6 hours in addition to this if necessary for pain control. You have been prescribed a muscle relaxer which you may take every 8 hours as needed for spasms. You have been prescribed 5% topical lidocaine patches which you can wear for up to 12 hours in a 24 hour period. Do not apply heat directly over the patches. Please schedule an appointment for follow-up with your primary care physician this week for further evaluation of your symptoms. You may require physical therapy to improve her symptoms which must be ordered by your primary care provider. Return to the emergency department if you experience worsening back pain, difficulty walking, fevers, numbness, tingling, incontinence, groin numbness or tingling, or any other concerning symptoms. Prescriptions: New prednisone 20 mg tablet 40 mg PO DAILY Qty: 14 0RF cyclobenzaprine 5 mg tablet 5 mg PO TID PRN (Reason: muscle spasm) Qty: 10 0RF lidocaine 5 % adhesive patch,medicated 1 patch topical DAILY Qty: 15 0RF Rx Instructions: leave on most painful area for up to 12 hrs No Action naproxen 500 mg tablet 500 mg PO BID PRN (Reason: pain) 7 Days Qty: 14 0RF prednisone 20 mg tablet 40 mg PO DAILY 5 Days Qty: 10 0RF omeprazole 40 mg capsule,delayed release(DR/EC) 40 mg PO DAILY Qty: 30 0RF Print Language: Nepali
[2023-12-15 11:47] VITALS: BP 148/62; PULSE 71; RESP 16; TEMP 36.6; O2SAT 98; BMI 28.3
--- OUTSIDE RECORDS SUMMARY | 2023-12-15 12:14 | XMS_ITS | Continuity of Care Document ---
Author Organization [facility] Primary Car e [facility] Address [address] [place] [address]- Care Team Providers Care Operator Electronic Warfare Name Role Phone Nohelia QUIGLEY, Mekhi [place] Primary Care Physician Encounter [facility] Date(s): 09/02/23 - 10/03/23 [facility] [address] [place] [address]- Attending Physician: Wendy Chanel MD Allergies, Adverse Reactions, Alerts No Known Allergies Immunizations Given and Recorded Vaccine Date Status Refusal Reason SARS-CoV-2 (COVID-19) mRNA BNT-162b2 vac 07/24/20 Recorded SARS-CoV-2 (COVID-19) mRNA BNT-162b2 vac 07/03/20 Recorded Medications buPROPion 300 mg/24 hours (XL) oral tablet, extended release 1 tablet = 300 mg, By Mouth, Daily, # 30 tablet, 4 Refills, Maintenance, 09/02/23 10:41:00 EDT, XL Tablet, [facility]/pharmacy #[id number], Partial fill upon patient request if the prescription is for a schedule II opioid drug., 180, cm, 09/02/23 10:07:00 EDT, Hei... Start Date: 09/02/23 Status: Ordered busPIRone 10 mg oral tablet 10 mg, 1, tablet, By Mouth, 2 times a day, for 30 days, TAKE 2 TABLETS BY MOUTH TWICE A DAY, # 60 tablet, Refills 2, Tot. Refills 2, Hard Stop 01/02/24 11:53:00 EDT, 10/04/23 11:53:00 EDT, Route to Pharmacy Electronically, [facility]/pharmacy #[id number], Partial... Start Date: 10/04/23 Stop Date: 01/02/24 Status: Ordered busPIRone 10 mg oral tablet 10 mg, 1, tablet, By Mouth, 2 times a day, # 60 tablet, Refills 1, Tot. Refills 1, Maintenance, 08/19/23 8:29:00 EDT, Route to Pharmacy Electronically, [facility]/pharmacy #[id number], Partial fill upon patient request if the prescription is for a schedule II opio... Start Date: 08/19/23 Stop Date: 10/18/23 Status: Ordered busPIRone 10 mg oral tablet 10 mg, 1, tablet, By Mouth, 2 times a day, for 30 days, # 60 tablet, Refills 2, Tot. Refills 2, Hard Stop 04/01/24 11:53:00 EST, 01/02/24 11:53:00 EDT, Route to Pharmacy Electronically, [facility]/pharmacy #[id number], Partial fill upon patient request if the pres... Start Date: 01/02/24 Stop Date: 04/01/24 Status: Ordered busPIRone 10 mg oral tablet 10 mg, 1, tablet, By Mouth, 2 times a day, for 30 days, TAKE 2 TABLETS BY MOUTH TWICE A DAY, # 60 tablet, Refills 1, Tot. Refills 1, Hard Stop 10/04/23 11:53:00 EDT, 08/05/23 11:53:00 EDT, Route to Pharmacy Electronically, [facility]/pharmacy #[id number], Partial... Start Date: 08/05/23 Stop Date: 10/04/23 Status: Ordered olanzapine 15 mg oral tablet 1 tablet = 15 mg, By Mouth, Daily at bedtime, TAKE 1 TABLET BY MOUTH EVERYDAY AT BEDTIME, # 30 tablet, 3 Refills, Maintenance, 10/04/23 11:53:00 EDT, Tablet, [facility]/pharmacy #[id number], Partial fill upon patient request if the prescription is for a schedule I... Start Date: 10/04/23 Stop Date: 02/01/24 Status: Ordered olanzapine 15 mg oral tablet 1 tablet = 15 mg, By Mouth, Daily at bedtime, for 30 days, TAKE 1 TABLET BY MOUTH EVERYDAY AT BEDTIME, # 30 tablet, 1 Refills, Hard Stop 10/04/23 11:53:00 EDT, 08/05/23 11:53:00 EDT, Tablet, [facility]pharmacy [id number], Partial fill upon patient request if the... Start Date: 08/05/23 Stop Date: 10/04/23 Status: Ordered Suboxone 4 mg-1 mg sublingual film 0 Refills, Maintenance, 12/05/22 13:05:00 EDT, Partial fill upon patient request if the prescription is for a schedule II opioid drug. Start Date: 12/05/22 Status: Ordered Problem List Condition Confirmation Course Effective Dates Status Health St atus Informant H/O: substance abuse Confirmed Active Anxiety with depression Confirmed Active Obese class I Confirmed Active Social History Social History Type Response Smoking [...] Team Personnel Name: Stepan Davenport RN Position: [facility] RN Member Role: Primary Care Nurse Name: Mekhi Pozo NP Position: [facility] PCO Associate Professional Member Role: PCP Address: Address: [address] [place] [address] Primary [place] [address]- Care Team Related Persons Name: ARACELIS CARRANZA Address: [place] [address] Name: ALYSA CARBAJAL Address: home [address] [place] [id number]
--- OUTSIDE RECORDS SUMMARY | 2023-12-15 12:14 | XMS_ITS | Continuity of Care Document ---
Author Organization [facility] Primary [facility] e [facility] Address [address] [place] [address]- Care Team Providers Care Conditioner Tender Name Role Phone Mekhi Pozo NP Primary Care Physician ( [phone] Encounter [facility] Date(s): 07/02/23 - 08/01/23 [facility] [address] [place], [place] [address] Allergies, Adverse Reactions, Alerts No Known Allergies Medications buPROPion 300 mg/24 hours (XL) oral tablet, extended release 1 tablet = 300 mg, By Mouth, Daily, # 30 tablet, 1 Refills, Maintenance, 06/20/23 8:28:00 EDT, XL Tablet, [facility]/pharmacy #[id number], Partial fill upon patient request if the prescription is for a schedule II opioid drug., 180, cm, 06/20/23 8:05:00 EDT, [facility]... Start Date: 06/20/23 Status: Ordered busPIRone 10 mg oral tablet 10 mg, 1, tablet, By Mouth, 2 times a day, for 30 days, TAKE 2 TABLETS BY MOUTH TWICE A DAY, # 60 tablet, Refills 1, Tot. Refills 1, Hard Stop 08/19/23 8:29:00 EDT, 06/20/23 8:29:00 EDT, Route to Pharmacy Electronically, [facility]/pharmacy #[id number], Partial fi... Start Date: 06/20/23 Stop Date: 08/19/23 Status: Ordered busPIRone 10 mg oral tablet 10 mg, 1, tablet, By Mouth, 2 times a day, # 60 tablet, Refills 1, Tot. Refills 1, Maintenance, 08/19/23 8:29:00 EDT, Route to Pharmacy Electronically, [facility]/pharmacy #[id number], Partial fill upon patient request if the prescription is for a schedule II opio... Start Date: 08/19/23 Stop Date: 10/18/23 Status: Ordered olanzapine 15 mg oral tablet 1 tablet = 15 mg, By Mouth, Daily at bedtime, TAKE 1 TABLET BY MOUTH EVERYDAY AT BEDTIME, # 30 tablet, 1 Refills, Maintenance, 06/20/23 8:28:00 EDT, Tablet, [facility]/pharmacy #[id number], Partial fill upon patient request if the prescription is for a schedule II... Start Date: 06/20/23 Stop Date: 08/19/23 Status: Ordered Suboxone 4 mg-1 mg sublingual film 0 Refills, Maintenance, 12/05/22 13:05:00 EDT, Partial fill upon patient request if the prescription is for a schedule II opioid drug. Start Date: 12/05/22 Status: Ordered Problem List Condition Confirmation Course Effective Dates Status Health St atus Informant H/O: substance abuse Confirmed Active Anxiety with depression Confirmed Active Social History Social History Type [...] Team Personnel Name: Stepan Davenport RN Position: [facility] RN Member Role: Primary Care Nurse Name: Mekhi Pozo NP Position: [facility] PCO Associate Professional Member Role: PCP Address: Address: [address] [place] [address] [place] [address]- Care Team Related Persons Name: ARACELIS CARRANZA Address: [place] [address] Name: ALYSA CARBAJAL Address: home [address] [place] [address]
--- OUTSIDE RECORDS SUMMARY | 2023-12-15 12:14 | XMS_ITS | Continuity of Care Document ---
Author Organization [facility] Primary Car e [facility] Address [address] [place] [address]- Care Team Providers Care Pulp Mill Operator Name Role Phone Nohelia QUIGLEY, Mekhi [place] Primary Care Physician Encounter [facility] Date(s): 06/04/23 - 07/04/23 [facility] Primary [facility] [address] [place] [address]- Allergies, Adverse Reactions, Alerts No Known Allergies Medications buPROPion 300 mg/24 hours (XL) oral tablet, extended release 1 tablet = 300 mg, By Mouth, Daily, # 30 tablet, 1 Refills, Maintenance, 06/20/23 8:28:00 EDT, XL Tablet, [facility]/pharmacy #[id number], Partial fill upon patient request if the prescription is for a schedule II opioid drug., 180, cm, 06/20/23 8:05:00 EDT, Naty... Start Date: 06/20/23 Status: Ordered busPIRone 10 mg oral tablet 10 mg, 1, tablet, By Mouth, 2 times a day, for 30 days, TAKE 2 TABLETS BY MOUTH TWICE A DAY, # 60 tablet, Refills 1, Tot. Refills 1, Hard Stop 08/19/23 8:29:00 EDT, 06/20/23 8:29:00 EDT, Route to Pharmacy Electronically, [facility]/pharmacy #[id number], Partial fi... Start Date: 06/20/23 Stop Date: 08/19/23 Status: Ordered busPIRone 10 mg oral tablet 10 mg, 1, tablet, By Mouth, 2 times a day, # 60 tablet, Refills 1, Tot. Refills 1, Maintenance, 08/19/23 8:29:00 EDT, Route to Pharmacy Electronically, [facility]/pharmacy #[id number], Partial fill upon patient request if the prescription is for a schedule II opio... Start Date: 08/19/23 Stop Date: 10/18/23 Status: Ordered olanzapine 15 mg oral tablet 1 tablet = 15 mg, By Mouth, Daily at bedtime, TAKE 1 TABLET BY MOUTH EVERYDAY AT BEDTIME, # 30 tablet, 1 Refills, Maintenance, 06/20/23 8:28:00 EDT, Tablet, [facility]/pharmacy #[id number], Partial fill upon patient request if the [...] Team Personnel Name: Stepan Davenport RN Position: [facility] RN Member Role: Primary Care Nurse Name: Mekhi Pozo NP Position: [facility] PCO Associate Professional Member Role: PCP Address: Address: [address] [place] [address] [place] [address]- Care Team Related Persons Name: ARACELIS CARRANZA Address: home UNKNOWN ADDRESS [facility] [place] [address] Name: ALYSA CARBAJAL Address: home [address] [place] [id number]
--- OUTSIDE RECORDS SUMMARY | 2023-12-15 12:15 | XMS_ITS | Continuity of Care Document ---
Author Organization [facility] Primary Car e [facility] Address [address] [place] [address]- Care Team Providers Care Ledge Man Name Role Phone Nohelia QUIGLEY, Mekhi [place] Primary Care Physician Encounter [facility] Date(s): 09/01/23 - 10/01/23 [facility] Primary [facility] [address] [place] [address]- Allergies, Adverse Reactions, Alerts No Known Allergies Immunizations Given and Recorded Vaccine Date Status Refusal Reason SARS-CoV-2 (COVID-19) mRNA BNT-162b2 vac 07/24/20 Recorded SARS-CoV-2 (COVID-19) mRNA BNT-162b2 vac 07/03/20 Recorded Medications buPROPion 300 mg/24 hours (XL) oral tablet, extended release 1 tablet = 300 mg, By Mouth, Daily, # 30 tablet, 4 Refills, Maintenance, 09/02/23 10:41:00 EDT, XL Tablet, [facility]/pharmacy #[id number], Partial fill upon patient request if [...] 10/04/23 11:53:00 EDT, Route to Pharmacy Electronically, [facility]/pharmacy #[id number], Partial... Start Date: 10/04/23 Stop Date: 01/02/24 Status: Ordered busPIRone 10 mg oral tablet 10 mg, 1, tablet, By Mouth, 2 times a day, # 60 tablet, Refills 1, Tot. Refills 1, Maintenance, 08/19/23 8:29:00 EDT, Route to Pharmacy Electronically, [id number], Partial fill upon patient request if the prescription is for a schedule II opio... Start Date: 08/19/23 Stop Date: 10/18/23 Status: Ordered busPIRone 10 mg oral tablet 10 mg, 1, tablet, By Mouth, 2 times a day, for 30 days, # 60 tablet, Refills 2, Tot. Refills 2, Hard Stop 04/01/24 11:53:00 EST, 01/02/24 11:53:00 EDT, Route to Pharmacy Electronically, [id number], Partial fill upon patient request [...] 08/05/23 11:53:00 EDT, Route to Pharmacy Electronically, [id number], Partial... Start Date: 08/05/23 Stop Date: [...] Team Personnel Name: Stepan Davenport RN Position: [facility] RN Member Role: Primary Care Nurse Name: Mekhi Pozo NP Position: [facility] PCO Associate Professional Member Role: PCP Address: Address: [address] [place] [address] [facility] [address] Care Team Related Persons Name: ARACELIS CARRANZA Address: home UNKNOWN ADDRESS [place] [address] Name: ALYSA CARBAJAL Address: home [address] [place] [address] [place] [address]
--- OUTSIDE RECORDS SUMMARY | 2023-12-15 12:15 | XMS_ITS | Continuity of Care Document ---
Author Organization [facility] Primary Car e [place] Address [address] [place] [address]- Care Team Providers Care Industrial Machinery Mechanic Name Role Phone Nohelia QUIGLEY, Mekhi [place] Primary Care Physician ( [phone] [id number] Date(s): 06/06/23 - 07/11/23 [facility] [place] [address]- Attending Physician: Yanique BARRAZA, Wendy Chisholm Allergies, Adverse Reactions, Alerts No Known Allergies Medications buPROPion 300 mg/24 hours (XL) oral tablet, extended release 1 tablet = 300 mg, By Mouth, Daily, # 30 tablet, 1 Refills, Maintenance, 06/20/23 8:28:00 EDT, XL Tablet, [facility]/pharmacy #[id number], Partial fill upon patient request if the prescription is for a schedule II opioid drug., 180, cm, 06/20/23 8:05:00 EDT, Heigh... Start Date: 06/20/23 Status: Ordered busPIRone 10 mg oral tablet 10 mg, 1, tablet, By Mouth, 2 times a day, for 30 days, TAKE 2 TABLETS BY MOUTH TWICE A DAY, # 60 tablet, Refills 1, Tot. Refills 1, Hard Stop 08/19/23 8:29:00 EDT, 06/20/23 8:29:00 EDT, Route to Pharmacy Electronically, [facility]/pharmacy #[id number], Partial fi... Start Date: 06/20/23 Stop Date: 08/19/23 Status: Ordered busPIRone 10 mg oral tablet 10 mg, 1, tablet, By Mouth, 2 times a day, # 60 tablet, Refills 1, Tot. Refills 1, Maintenance, 08/19/23 8:29:00 EDT, Route to Pharmacy Electronically, [facility]/pharmacy #[id number], Partial fill upon patient request if the prescription is for a schedule II opio... Start Date: 08/19/23 Stop Date: 10/18/23 Status: Ordered olanzapine 15 mg oral tablet 1 tablet = 15 mg, By Mouth, Daily at bedtime, TAKE 1 TABLET BY MOUTH EVERYDAY AT BEDTIME, # 30 tablet, 1 Refills, Maintenance, 06/20/23 8:28:00 EDT, Tablet, [facility]/pharmacy #[id number], Partial fill upon [...] Team Personnel Name: Stepan Davenport RN Position: [facility] RN Member Role: Primary Care Nurse Name: Mekhi Pozo NP Position: [facility] PCO Associate Professional Member Role: PCP Address: Address: [address] [place] [address] [place] [address]- Care Team Related Persons Name: CARRANZAARACELIS Address: [place] [address] Name: ALYSA CARBAJAL Address: home [address] [place] [address]
[2023-12-15 14:14] VITALS: BP 125/86; PULSE 65; RESP 14; TEMP 36.3; O2SAT 98
== END 2023-12-15 14:19 | disposition home or self-care (01) ==
PROVIDERS: Emergency Provider Emergency Medicine Emergency Medical Services; PCP Nurse Practitioner Family
DX: M54.16 Radiculopathy, lumbar region (principal); M54.50 Low back pain, unspecified; M53.3 Sacrococcygeal disorders, not elsewhere classified
CPT/HCPCS: 72100; 72220; 99283; 99284

== ENCOUNTER 2024-06-22 09:02 | Emergency (ER) | payer OTHER, SELFPAY ==
--- NOTE | ~2024-06-22 | XR_ITS ---
EXAMINATION: XR CHEST CLINICAL INFORMATION: cough COMPARISON: May 23, 2023. TECHNIQUE: Frontal view of the chest was obtained. FINDINGS: Patchy opacity extending from the inferior right perihilar region to the right lower hemithorax. Prominence of the interstitial lung markings bilaterally. No pleural effusion. No pneumothorax. Cardiomediastinal silhouette size is normal. Mild multilevel thoracic spondylosis. XR/XR chest 1V IMPRESSION: Acute small pulmonary airway disease with the probable pneumonia, right middle lung lobe. Electronically signed by: Manuel Eddy MD 06/22/2024 09:34 AM EDT
[2024-06-22 09:07] VITALS: BP 149/85; PULSE 79; RESP 20; TEMP 36.8; O2SAT 97; BMI 26.1
--- NOTE | 2024-06-22 09:31 | ED_ITS ---
HPI - URI/Sore Throat General Chief Complaint: Upper Respiratory Symptoms Stated Complaint: Fever, weakness , SOB Time Seen by Provider: 06/22/24 09:22 Source: patient and RN notes reviewed Mode of arrival: ambulatory Limitations: no limitations History of Present Illness ED Provider: Delfina Denson PA-C HPI Narrative: This is a 43-year-old male, with a history of anxiety and depression, who presents emergency department for evaluation of cough, sore throat, congestion, headaches for the last 3 days. Patient states that he has had positive sick contacts at work, states that he has had exposures to the flu and pneumonia. He has been taking [id number] medications which has provided him with some relief. He does endorse some chest pain, which only occurs with cough. No shortness of breath. No recent travel, surgery or hospitalizations. He does vape, denies cigarette use. he denies any chest pain, palpitations, abdominal pain, nausea, vomiting or diarrhea. He has been taking Excedrin migraine for his symptoms which has provided him with some relief. No other complaints or concerns at this time. MD elicited complaint: cough, rhinorrhea and nasal congestion Onset (ago): day(s) Able to tolerate fluids by mouth: Yes Exacerbating factors: nothing Relieving factors: NSAID Context: sick contacts Associated symptoms: chills, headache, nasal congestion, sore throat and cough Treatments prior to arrival: other ( Excedrin migraine) Related Data Previous Rx's ?Medication ?Instructions ?Recorded naproxen 500 mg tablet 500 mg PO BID PRN pain 7 days #14 03/07/22 tabs prednisone 20 mg tablet 40 mg (2 x 20 mg) PO DAILY 5 days 03/07/22 #10 tabs omeprazole 40 mg capsule,delayed 40 mg PO DAILY #30 caps 05/29/22 release cyclobenzaprine 5 mg tablet 5 mg PO TID PRN muscle spasm #10 12/15/23 tabs lidocaine 5 % topical patch 1 patch topical DAILY #15 ea 12/15/23 prednisone 20 mg tablet 40 mg (2 x 20 mg) PO DAILY #14 tabs 12/15/23 acetaminophen 500 mg tablet 1,000 mg (2 x 500 mg) PO Q6H PRN 06/22/24 (Tylenol Extra Strength) pain #30 tabs azithromycin 250 mg tablet 250 mg PO DAILY 4 days #4 tabs 06/22/24 ibuprofen 600 mg tablet 600 mg PO Q6H PRN fever or pain 06/22/24 #30 tabs Allergies Allergy/AdvReac Type Severity Reaction Status Date / Time No Known Allergies Allergy Verified 06/22/24 09:11 [facility] Past Medical History Medical History Depression Anxiety Surgical History History of throat surgery Social History Social History Alcohol intake: never Substance Use Type: Marijuana Advance Directives: No Advance Directives Information Provided: No Do you have a plan to hurt others: No Plan Physical Exam 2 Vital Signs: Vital Signs: Last Vital Signs Temp 98.8 F 06/22/24 13:18 Pulse 70 06/22/24 13:18 Resp 20 06/22/24 13:18 BP 143/93 H 06/22/24 13:18 Pulse Ox 96 06/22/24 13:18 O2 Del Method Room Air 06/22/24 13:18 BMI result Body Mass Index 26.1 Medications Administered Discontinued Medications Generic Name Dose Route Start Last Admin Trade Name Freq PRN Reason Stop Dose Admin Azithromycin 500 mg 06/22/24 09:47 06/22/24 10:22 Azithromycin 500 Mg Tablet PO 06/22/24 09:48 500 mg ONCE ONE Administration Lactated Ringer's 1,000 mls @ 999 mls/hr 06/22/24 09:44 06/22/24 11:42 Lr IV 06/22/24 10:44 Infused .Q1H1M ONE Infusion Lactated Ringer's 1,000 mls @ 999 mls/hr 06/22/24 11:24 06/22/24 12:43 Lr IV 06/22/24 12:24 Infused .Q1H1M ONE Infusion Medical Decision Making Medical Decision Making MDM Narrative: this is a 43-year-old male, with no known medical problems, who presents emergency department with complaints of cough, congestion, sore throat, headache, subjective fevers and chills for the last several days. Positive known exposure to pneumonia. On arrival, patient mildly hypertensive at 149/85, all other vital signs within normal limits. He is speaking full sentences under no acute distress. He has no chest pain. Lungs are clear to auscultation bilaterally. Labs revealed no leukocytosis, chemistry with no significant electrolyte derangement, no evidence of COLEMAN. Troponin less than 2.7. Urine with high specific gravity. Will medicate with 2 L of IV fluids patient declines wanting ibuprofen at this time, he took Excedrin prior to his arrival. Chest x-ray was obtained revealing probable right middle lobe pneumonia. Patient given 1st dose of azithromycin in the department today. Patient's symptoms improved after receiving IV fluids. Given strict return precautions. He understands and agrees with plan. Patient stable for discharge Differential Diagnosis Differential Diagnoses: The differential diagnosis associated with the presentation includes URI, pneumonia, COVID, flu, RSV reactive airway disease Lab Data [facility] Lab Attestation statement: I reviewed the patient's lab results. see [facility] 06/22/24 10:11 06/22/24 10:11 Labs: Lab Results 06/22/24 06/22/24 06/22/24 Range/Units 09:25 10:11 10:14 WBC 10.0 (4.8-10.8) X10*3/uL RBC 5.81 H (4.60-5.80) X10*6/uL Hgb 18.3 H (14.0-18.0) g/dl Hct 51.2 (42.0-52.0) % MCV 88.1 (80.0-98.0) fL MCH 31.5 (27.0-33.0) pg MCHC 35.7 (31.0-36.0) g/dl RDW 12.5 (11.0-16.0) % Plt Count 186 (160-400) X10*3/uL MPV 8.2 L (9.4-12.4) fL Immature Gran % (Auto) 0.6 H (0.0-0.4) % Neut % (Auto) 79.0 H (45-73) % Lymph % (Auto) 11.9 L (20-40) % [place] % (Auto) 7.8 (2-11) % Eos % (Auto) 0.4 (0-4) % Baso % (Auto) 0.3 (0-2) % Lymph # (Auto) 1.2 (1.2-4.9) X10*3/uL [place] # (Auto) 0.8 (0.1-1.2) X10*3/uL Eos # (Auto) 0.0 (0.0-0.4) X10*3/uL Baso # (Auto) 0.0 (0.0-0.2) X10*3/uL Abs Immat Gran (auto) 0.06 H (0.00-0.03) X10*3/uL Absolute Neuts (auto) 7.9 (2.0-8.3) x10*3/uL Absolute Nucleated RBC 0.000 (0.0-0.012) X10*3/uL Nucleated RBC % (auto) 0.0 (0.0-0.2) /100WBC Sodium 139 (135-145) mmol/L Potassium 3.9 (3.3-5.1) mmol/L Chloride 107 (96-108) mmol/L Carbon Dioxide 23 (22-29) mmol/L Anion Gap 13 (12-20) BUN 13 (9-16) mg/dL Creatinine 1.13 (0.5-1.4) mg/dL Estim Creat Clear Calc 91.6 Estimated GFR > 60 Random Glucose 96 (60-115) mg/dL Calcium 8.8 (8.4-10.2) mg/dL Magnesium 1.9 (1.6-2.6) mg/dL Total Bilirubin 0.6 (0.0-1.0) mg/dL Direct Bilirubin 0.2 (0.0-0.5) mg/dL AST 33 (5-37) U/L ALT 31 (0-40) U/L Alkaline Phosphatase 72 (39-117) U/L Troponin I High Sens < 2.7 (<3.5-35.0) ng/L Total Protein 7.6 (6.5-8.0) g/dL Albumin 4.2 (3.5-5.0) g/dL Urine Color Yellow Urine Appearance Clear Urine pH 6.0 (5.0-9.0) Ur Specific [place] >= 1.030 H (1.005-1.025) Urine Protein 30 (1+) H (Neg-Trace) mg/dL Urine Glucose (UA) Negative (Negative) mg/dL Urine Ketones 15 (Negative) mg/dL Urine Blood Negative (Negative) Urine Nitrite Negative (Negative) Ur Leukocyte Esterase Negative (Negative) Urine RBC 0-2 (0-2) /HPF Urine WBC 0-5 (0-5) /HPF Ur Squamous Epith Cells 0-2 (0-2) /HPF Urine Bacteria None Seen (None Seen) Hyaline Casts 0-2 (0-2) /LPF Influenza Type A (PCR) NEGATIVE (Negative) Influenza Type B (PCR) NEGATIVE (Negative) RSV RNA Qual (PCR) NEGATIVE (Negative) SARS-CoV-2 RNA (RT-PCR) NEGATIVE (Negative) S. pyogenes GrpA ALEX Negative (Negative) Independent Interpretation I performed an independent interpretation of an: EKG Interpretation: EKG normal sinus rhythm with no ST elevation or depression. Radiology Impression Discussion of test interpretation with radiology: I have reviewed the radiologist's reading. Radiologist Impression: COMPARISON: May 23, 2023. TECHNIQUE: Frontal view of the chest was obtained. FINDINGS: Patchy opacity extending from the inferior right perihilar region to the right lower hemithorax. Prominence of the interstitial lung markings bilaterally. No pleural effusion. No pneumothorax. Cardiomediastinal silhouette size is normal. Mild multilevel thoracic spondylosis. XR/XR chest 1V IMPRESSION: Acute small pulmonary airway disease with the probable pneumonia, right middle lung lobe Discharge Plan Discharge Clinical Impression: Pneumonia Patient Disposition: Home, Self-Care Instructions: Pneumonia (ED) Additional Instructions: You were seen in the emergency department and your x-rays concerning for a pneumonia. Your blood work was otherwise reassuring. You tested negative for COVID, flu, RSV, and strep throat. You already received your 1st dose of the antibiotic in the department today, start this tomorrow. Please take prescribed antibiotic as directed. Finish the entire course even if your symptoms improve. Alternate between ibuprofen and Tylenol as prescribed. You may take ibuprofen 600 mg every 6 hours, 2 hours later take Tylenol 1000 mg. Alternating between these 2 medications can help alleviate pain and fevers. If any new or worsening symptoms occur including but not limited to severe chest pain, shortness of breath, abdominal pain, nausea, vomiting or diarrhea, please seek emergent care. Prescriptions: New azithromycin 250 mg tablet 250 mg PO DAILY 4 Days Qty: 4 0RF Rx Instructions: start on day 2 of therapy ibuprofen 600 mg tablet 600 mg PO Q6H PRN (Reason: fever or pain) Qty: 30 0RF acetaminophen [Tylenol Extra Strength] 500 mg tablet 1,000 mg PO Q6H PRN (Reason: pain) Qty: 30 0RF No Action naproxen 500 mg tablet 500 mg PO BID PRN (Reason: pain) 7 Days Qty: 14 0RF prednisone 20 mg tablet 40 mg PO DAILY 5 Days Qty: 10 0RF omeprazole 40 mg capsule,delayed release(DR/EC) 40 mg PO DAILY Qty: 30 0RF prednisone 20 mg tablet 40 mg PO DAILY Qty: 14 0RF cyclobenzaprine 5 mg tablet 5 mg PO TID PRN (Reason: muscle spasm) Qty: 10 0RF lidocaine 5 % adhesive patch,medicated 1 patch topical DAILY Qty: 15 0RF Rx Instructions: leave on most painful area for up to 12 hrs Stand Alone Forms: Work/School Release Interventions: ED Discharge Assessment Last Done: 06/22/24 13:18 Discharge Date/Time: 06/22/24 13:19 Print Language: Slovenian
--- NOTE | 2024-06-22 09:43 | ECG_ITS ---
Test Reason : weakness Blood Pressure : */* mmHG Vent. Rate : 83 BPM Atrial Rate : 83 BPM P-R Int : 144 ms QRS Dur : 100 ms QT Int : 360 ms P-R-T Axes : 80 54 27 degrees QTcB Int : 423 ms Normal sinus rhythm Normal ECG When compared with ECG of 23-May-2023 11:46, T wave amplitude has increased in Anterior leads Referred By: Delfina Denson Electronically Signed By: John Limon
[2024-06-22 09:56] LABS: IDNOW Serial# 58CA691E; Strep A Nucleic Acid Negative (Negative)
[2024-06-22] MEDS: Lactated Ringers 1,000 ML 999 ML IV ×2 (10:12→11:42)
[2024-06-22 10:16] LABS: Influenza A PCR NEGATIVE (Negative); Influenza B PCR NEGATIVE (Negative); Resp Syncy Virus RNA Qual PCR NEGATIVE (Negative); SARS COV2 PCR INHOUSE NEGATIVE (Negative)
[2024-06-22 10:21] LABS: MANUAL DIFF FLAG NO
[2024-06-22 10:22] LABS: Basophils Percent Auto 0.3 % (0-2); Eosinophils Percent Auto 0.4 % (0-4); Hematocrit 51.2 % (42.0-52.0); Hemoglobin 18.3 g/dl (14.0-18.0); Imm Gran Abs Auto 0.06 X10*3/uL (0.00-0.03); Imm Gran Pct Auto 0.6 % (0.0-0.4); Lymphocytes Absolute Auto 1.2 X10*3/uL (1.2-4.9); Lymphocytes Percent Auto 11.9 % (20-40); Mean Corpuscular HGB Conc 35.7 g/dl (31.0-36.0); Mean Corpuscular Hemoglobin 31.5 pg (27.0-33.0); Mean Corpuscular Volume 88.1 fL (80.0-98.0); Mean Platelet Volume 8.2 fL (9.4-12.4); Monocytes Absolute Auto 0.8 X10*3/uL (0.1-1.2); Monocytes Percent Auto 7.8 % (2-11); Neutrophils Absolute Auto 7.9 x10*3/uL (2.0-8.3); Platelet Count 186 X10*3/uL (160-400); Red Blood Count 5.81 X10*6/uL (4.60-5.80); Red Cell Distribution Width 12.5 % (11.0-16.0)
[2024-06-22] MEDS: Azithromycin 500 MG TABLET PO (10:22)
[2024-06-22 10:26] LABS: Appearance Urine Clear; Color Urine Yellow; Glucose Urine UA Negative (Negative); Leukocyte Esterase Urine Negative (Negative); Nitrite Urine Negative (Negative); Specific Gravity - Urine >= 1.030 (1.005-1.025); UMIC TRIGGER UACC YES; Urine Blood Negative (Negative); Urine Ketones 15 mg/dL (Negative); Urine Protein 30 (1+) mg/dL (Neg-Trace)
[2024-06-22 10:29] LABS: Bacteria Urine None Seen (None Seen); Hyaline Casts Urine 0-2 /LPF (0-2); RBC Urine 0-2 /HPF (0-2); Squamous Epithelial Cell Urine 0-2 /HPF (0-2); WBC Urine 0-5 /HPF (0-5)
[2024-06-22 10:40] LABS: Alanine Aminotransferase 31 U/L (0-40); Albumin Level 4.2 g/dL (3.5-5.0); Alkaline Phosphatase 72 U/L (39-117); Anion Gap 13 (12-20); Aspartate Amino Transferase 33 U/L (5-37); Bilirubin Direct 0.2 mg/dL (0.0-0.5); Bilirubin Total 0.6 mg/dL (0.0-1.0); Blood Urea Nitrogen 13 mg/dL (9-16); Calcium 8.8 mg/dL (8.4-10.2); Carbon Dioxide 23 mmol/L (22-29); Chloride 107 mmol/L (96-108); Creatinine Clr Calc Pharmacy 91.6; Estimated Glomerular Filt Rate > 60; Glucose Random 96 mg/dL (60-115); Magnesium 1.9 mg/dL (1.6-2.6); Potassium 3.9 mmol/L (3.3-5.1); Sodium 139 mmol/L (135-145); Total Protein 7.6 g/dL (6.5-8.0)
[2024-06-22 10:47] LABS: Troponin-I High Sensitivity < 2.7 ng/L (<3.5-35.0)
[2024-06-22 10:50] VITALS: BP 126/82; PULSE 66
[2024-06-22 10:51] VITALS: BP 143/90; BP 143/93; PULSE 63; PULSE 70
[2024-06-22 13:18] VITALS: BP 143/93; PULSE 70; RESP 20; TEMP 37.1; O2SAT 96
== END 2024-06-22 13:19 | disposition home or self-care (01) ==
PROVIDERS: Physician Assistant Medical; Emergency Provider Emergency Medicine Emergency Medical Services; PCP Nurse Practitioner Family
DX: J18.9 Pneumonia, unspecified organism (principal); R05.9 Cough, unspecified; R53.1 Weakness; J02.9 Acute pharyngitis, unspecified
CPT/HCPCS: 0241U; 36415; 71045; 80048; 80076; 81001; 83735; 84484; 85025; 87040; 87651; 93005; 96360; 96361; 99284; J7120

== ENCOUNTER → 2024-06-22 09:12 | Outpatient (BNV) | payer OTHER, SELFPAY | PROVIDERS: Emergency Provider Emergency Medicine Emergency Medical Services; PCP Nurse Practitioner Family; Visit Provider Radiology Diagnostic Radiology | DX: J98.8 Other specified respiratory disorders (principal) | CPT/HCPCS: 71045 ==

== ENCOUNTER → 2024-06-22 09:43 | Outpatient (BNV) | payer OTHER, SELFPAY | PROVIDERS: Emergency Provider Emergency Medicine Emergency Medical Services; PCP Nurse Practitioner Family; Visit Provider Internal Medicine Cardiovascular Disease | DX: R53.1 Weakness (principal) | CPT/HCPCS: 93010 ==

== ENCOUNTER 2024-09-20 10:48 | Emergency (ER) | payer OTHER, SELFPAY ==
[2024-09-20] VITALS (7 sets, daily range): BP systolic 131–151; BP diastolic 81–91; PULSE 70–85; RESP 16–18; TEMP 36.7–36.8; O2SAT 97–100; BMI 28.2
--- NOTE | ~2024-09-20 | XR_ITS ---
EXAMINATION: XR CHEST CLINICAL INFORMATION: cp COMPARISON: 06/22/2024, 05/23/2023. TECHNIQUE: 2 views of the chest were obtained. FINDINGS: The cardiac, hilar, and mediastinal contours are normal. Lungs again demonstrate mild prominence of the background interstitial markings although are otherwise clear. There is no pneumothorax or pleural effusion. There is no focal osseous or soft tissue abnormality. XR/XR chest 2V IMPRESSION: No active pulmonary disease. Electronically signed by: Iggy Ca MD 09/20/2024 12:15 PM EDT
--- NOTE | 2024-09-20 10:52 | ECG_ITS ---
Test Reason : chest pain Blood Pressure : */* mmHG Vent. Rate : 84 BPM Atrial Rate : 84 BPM P-R Int : 148 ms QRS Dur : 94 ms QT Int : 342 ms P-R-T Axes : 62 8 4 degrees QTcB Int : 404 ms Normal sinus rhythm Cannot rule out Anterior infarct , age undetermined Abnormal ECG When compared with ECG of 22-Jun-2024 09:50, No significant change was found Referred By: Generic ED Physician Electronically Signed By: John Limon
[2024-09-20 11:38] LABS: MANUAL DIFF FLAG NO
[2024-09-20 11:39] LABS: Basophils Percent Auto 0.3 % (0-2); Eosinophils Percent Auto 0.4 % (0-4); Hematocrit 49.3 % (42.0-52.0); Hemoglobin 17.6 g/dl (14.0-18.0); Imm Gran Abs Auto 0.04 X10*3/uL (0.00-0.03); Imm Gran Pct Auto 0.4 % (0.0-0.4); Lymphocytes Absolute Auto 1.1 X10*3/uL (1.2-4.9); Lymphocytes Percent Auto 10.6 % (20-40); Mean Corpuscular HGB Conc 35.7 g/dl (31.0-36.0); Mean Corpuscular Volume 86.9 fL (80.0-98.0); Mean Platelet Volume 8.2 fL (9.4-12.4); Monocytes Absolute Auto 0.5 X10*3/uL (0.1-1.2); Monocytes Percent Auto 4.6 % (2-11); Neutrophils Absolute Auto 8.6 x10*3/uL (2.0-8.3); Neutrophils Percent Auto 83.7 % (45-73); Platelet Count 255 X10*3/uL (160-400); Red Blood Count 5.67 X10*6/uL (4.60-5.80); White Blood Count 10.2 X10*3/uL (4.8-10.8)
[2024-09-20 11:59] LABS: Alanine Aminotransferase 51 U/L (0-40); Albumin Level 4.2 g/dL (3.5-5.0); Alkaline Phosphatase 55 U/L (39-117); Anion Gap 11 (12-20); Aspartate Amino Transferase 58 U/L (5-37); Bilirubin Total 0.6 mg/dL (0.0-1.0); Blood Urea Nitrogen 14 mg/dL (9-16); Calcium 9.2 mg/dL (8.4-10.2); Carbon Dioxide 26 mmol/L (22-29); Chloride 106 mmol/L (96-108); Creatinine Clr Calc Pharmacy 88.3; Estimated Glomerular Filt Rate > 60; Glucose Random 114 mg/dL (60-115); Sodium 139 mmol/L (135-145); Total Protein 7.1 g/dL (6.5-8.0)
[2024-09-20 12:00] LABS: Troponin-I High Sensitivity 3.3 ng/L (<3.5-35.0)
--- NOTE | 2024-09-20 12:58 | ED_ITS ---
HPI - Chest Pain General Chief Complaint: Chest Pain Stated Complaint: chest pain Time Seen by Provider: 09/20/24 13:41 Source: patient Mode of arrival: ambulatory Limitations: no limitations History of Present Illness ED Provider: DR. Laughlin HPI narrative: [age] year old male with no past medical history presented for evaluation of chest pain that started 3 days ago as a mid chest pain with feeling palpitation and pain radiates to the left forearm pain is intermittent lasts for few sec and go away, no clear aggravating or relieving factor, pain usually associated with lightheadedness and generalized weakness. Patient declined using any recreational drugs, no recent travel, no recent prolonged immobilization, no lower extremity swelling or tenderness. Patient admit to stress currently going with his life. No chest trauma or injury, no SOB. Related Data Previous Rx's ?Medication ?Instructions ?Recorded naproxen 500 mg tablet 500 mg PO BID PRN pain 7 days #14 03/07/22 tabs prednisone 20 mg tablet 40 mg (2 x 20 mg) PO DAILY 5 days 03/07/22 #10 tabs omeprazole 40 mg capsule,delayed 40 mg PO DAILY #30 caps 05/29/22 release cyclobenzaprine 5 mg tablet 5 mg PO TID PRN muscle spasm #10 12/15/23 tabs lidocaine 5 % topical patch 1 patch topical DAILY #15 ea 12/15/23 prednisone 20 mg tablet 40 mg (2 x 20 mg) PO DAILY #14 tabs 12/15/23 acetaminophen 500 mg tablet 1,000 mg (2 x 500 mg) PO Q6H PRN 06/22/24 (Tylenol Extra Strength) pain #30 tabs azithromycin 250 mg tablet 250 mg PO DAILY 4 days #4 tabs 06/22/24 ibuprofen 600 mg tablet 600 mg PO Q6H PRN fever or pain 06/22/24 #30 tabs Allergies Allergy/AdvReac Type Severity Reaction Status Date / Time No Known Allergies Allergy Verified 09/20/24 11:11 Review of Systems 2 Review of Systems: All other systems are reviewed and are negative Constitutional: Reports as per HPI and Reports no additional constitutional complaints Eyes: Reports as per HPI and Reports no additional eye complaints Reports system reviewed and no additional complaints, except as documented Cardiovascular: Reports as per HPI and Reports no additional cardiovascular complaints Respiratory: Reports as per HPI and Reports no additional respiratory complaints Gastrointestinal: Reports as per HPI and Reports no additional gastrointestinal complaints Genitourinary: Reports no additional female genitourinary complaints Musculoskeletal: Reports no additional musculoskeletal complaints Skin/Breast: Reports system reviewed and no additional complaints, except as docu Psychiatric: Reports no additional psychiatric complaints Endocrine: Reports no additional endocrine complaints Hematologic/Lymphatic: Reports no additional hematologic/lymphatic complaints Allergic/Immunologic: Reports no additional allergic/immunologic complaints Reports system reviewed and no additional complaints, except as documented and Reports Abnormal speech present [facility] Past Medical History Medical History Depression Anxiety Surgical History History of throat surgery Social History Social History Alcohol intake: never Smoked in Last 30 Days: No Substance Use Type: Marijuana Advance Directives: No Advance Directives Information Provided: Yes Physical Exam 2 Vital Signs: Vital Signs: Last Vital Signs Temp 98.2 F 09/20/24 13:45 Pulse 76 09/20/24 13:51 Resp 16 09/20/24 13:45 BP 138/90 H 09/20/24 13:51 Pulse Ox 98 09/20/24 13:45 O2 Del Method Room Air 09/20/24 13:45 BMI result Body Mass Index 28.2 Vital signs have been reviewed and appear to be correct. Blood pressure elevated. Heart rate normal. Respiratory rate normal. Temperature normal. Oxygen saturation normal. Appearance: Alert. Oriented X3. No acute distress. Head: Normal external exam. Normocephalic. Atraumatic. No Kruger signs noted. No raccoon eyes noted Eyes: PERRLA. EOMI. Conjunctiva and sclera normal. Eyelids normal. ENT: TM's Normal. Pharynx normal. Uvula midline. Moist mucous membranes. No trismus noted. No drooling noted. No muffled voice noted. Neck: Normal inspection. Neck supple. FROM. No adenopathy. Thyroid Normal. No meningeal signs. No neck mass noted. CVS: Normal heart rate and rhythm. Heart sound normal. No murmurs noted. Pulses normal throughout. Respiratory: No respiratory distress. Painless inspiration. Breath sounds normal. No wheezes/rales/rhonchi noted. Chest nontender. No accessory muscle usage noted or decreased air movement noted. Abdomen: Soft and nontender. Bowel sounds normal in all 4 quadrants. No distention noted. No organomegaly noted. No visible injury noted. Back: No CVA tenderness. Full range of motion noted. Skin: Skin warm and dry. Normal skin color. Normal skin turgor. No rashes/lesions/lacerations noted. Extremities: No lower extremity edema. Extremities exhibit normal range of motion. Extremities nontender. Neuro: Oriented X 3. Cranial nerve exam: II-XII are grossly intact No motor deficit. No sensory deficit. Reflexes normal. Course Course Course Narrative: RME performed by Clare Oro PA-C. Patient is a 44 year old assigned male at presenting to the emergency department with left forearm pain and chest pain. Detailed physical exam and review of systems are deferred to the maintenance painter apprentice. EKG, labs, imaging, and swabs ordered. Patient placed back in the waiting room pending room availability and results. Reevaluation(s) Reevaluation #1: Chest pain x3 days, negative cardiac enzymes with unchanged EKG making ACS is unfavorable diagnosis, patient also is at low risk for embolism. Time: 13:55 Medical Decision Making Differential Diagnosis Differential Diagnoses: The differential diagnosis associated with the presentation includes ( ACS, pulmonary embolism, pneumonia, pneumothorax, pleural effusion, chest injury, electrolyte derangement, severe anemia, orthostatic hypotension, Viral upper respiratory infection, dehydration.) Admission/Observation Consideration of admission/observation: Escalation of care including admission/observation considered Lab Data MDM Lab Attestation statement: I reviewed the patient's lab results. 09/20/24 11:24 09/20/24 11:24 Labs: Lab Results 09/20/24 09/20/24 Range/Units 11:24 13:10 WBC 10.2 (4.8-10.8) X10*3/uL RBC 5.67 (4.60-5.80) X10*6/uL Hgb 17.6 (14.0-18.0) g/dl Hct 49.3 (42.0-52.0) % MCV 86.9 (80.0-98.0) fL MCH 31.0 (27.0-33.0) pg MCHC 35.7 (31.0-36.0) g/dl RDW 12.0 (11.0-16.0) % Plt Count 255 D (160-400) X10*3/uL MPV 8.2 L (9.4-12.4) fL Immature Gran % (Auto) 0.4 (0.0-0.4) % Neut % (Auto) 83.7 H (45-73) % Lymph % (Auto) 10.6 L (20-40) % [place] % (Auto) 4.6 (2-11) % Eos % (Auto) 0.4 (0-4) % Baso % (Auto) 0.3 (0-2) % Lymph # (Auto) 1.1 L (1.2-4.9) X10*3/uL [place] # (Auto) 0.5 (0.1-1.2) X10*3/uL Eos # (Auto) 0.0 (0.0-0.4) X10*3/uL Baso # (Auto) 0.0 (0.0-0.2) X10*3/uL Abs Immat Gran (auto) 0.04 H (0.00-0.03) X10*3/uL Absolute Neuts (auto) 8.6 H (2.0-8.3) x10*3/uL Absolute Nucleated RBC 0.000 (0.0-0.012) X10*3/uL Nucleated RBC % (auto) 0.0 (0.0-0.2) /100WBC Sodium 139 (135-145) mmol/L Potassium 4.0 (3.3-5.1) mmol/L Chloride 106 (96-108) mmol/L Carbon Dioxide 26 (22-29) mmol/L Anion Gap 11 L (12-20) BUN 14 (9-16) mg/dL Creatinine 1.26 (0.5-1.4) mg/dL Estim Creat Clear Calc 88.3 Estimated GFR > 60 Random Glucose 114 (60-115) mg/dL Calcium 9.2 (8.4-10.2) mg/dL Magnesium 1.9 (1.6-2.6) mg/dL Total Bilirubin 0.6 (0.0-1.0) mg/dL AST 58 H (5-37) U/L ALT 51 H (0-40) U/L Alkaline Phosphatase 55 (39-117) U/L Troponin I High Sens 3.3 3.5 (<3.5-35.0) ng/L Total Protein 7.1 (6.5-8.0) g/dL Albumin 4.2 (3.5-5.0) g/dL Lipase 12 (8-78) U/L Influenza Type A (PCR) NEGATIVE (Negative) Influenza Type B (PCR) NEGATIVE (Negative) RSV RNA Qual (PCR) NEGATIVE (Negative) SARS-CoV-2 RNA (RT-PCR) NEGATIVE (Negative) Independent Interpretation I performed an independent interpretation of an: EKG ( Normal sinus rhythm, no ST-T changes, no change from previous EKG.) and Plain X-Ray ( Chest: No acute pulmonary disease.) Radiology Impression Discussion of test interpretation with radiology: I have reviewed the radiologist's reading. Discharge Plan Discharge Clinical Impression: Atypical chest pain Patient Disposition: Home, Self-Care Instructions: Chest Pain (ED) Prescriptions: No Action naproxen 500 mg tablet 500 mg PO BID PRN (Reason: pain) 7 Days Qty: 14 0RF prednisone 20 mg tablet 40 mg PO DAILY 5 Days Qty: 10 0RF omeprazole 40 mg capsule,delayed release(DR/EC) 40 mg PO DAILY Qty: 30 0RF prednisone 20 mg tablet 40 mg PO DAILY Qty: 14 0RF cyclobenzaprine 5 mg tablet 5 mg PO TID PRN (Reason: muscle spasm) Qty: 10 0RF lidocaine 5 % adhesive patch,medicated 1 patch topical DAILY Qty: 15 0RF Rx Instructions: leave on most painful area for up to 12 hrs azithromycin 250 mg tablet 250 mg PO DAILY 4 Days Qty: 4 0RF Rx Instructions: start on day 2 of therapy ibuprofen 600 mg tablet 600 mg PO Q6H PRN (Reason: fever or pain) Qty: 30 0RF acetaminophen [Tylenol Extra Strength] 500 mg tablet 1,000 mg PO Q6H PRN (Reason: pain) Qty: 30 0RF Referrals: Mekhi Pozo NP [Primary Care Provider] - Print Language: Ukrainian
[2024-09-20 13:20] LABS: Lipase 12 U/L (8-78); Magnesium 1.9 mg/dL (1.6-2.6)
[2024-09-20 13:34] LABS: Troponin-I High Sensitivity 3.5 ng/L (<3.5-35.0)
[2024-09-20 13:53] LABS: Influenza A PCR NEGATIVE (Negative); Influenza B PCR NEGATIVE (Negative); Resp Syncy Virus RNA Qual PCR NEGATIVE (Negative); SARS COV2 PCR INHOUSE NEGATIVE (Negative)
== END 2024-09-20 14:19 | disposition home or self-care (01) ==
PROVIDERS: Physician Assistant Medical; Emergency Provider Emergency Medicine; PCP Nurse Practitioner Family
DX: R07.89 Other chest pain (principal); Z03.818 Encounter for observation for suspected exposure to other biological agents ruled out; F41.9 Anxiety disorder, unspecified; F32.A Depression, unspecified; F12.90 Cannabis use, unspecified, uncomplicated; Z79.899 Other long term (current) drug therapy
CPT/HCPCS: 0241U; 36415; 71046; 80053; 83690; 83735; 84484; 85025; 93005; 99283; 99284

== ENCOUNTER → 2024-09-20 10:52 | Outpatient (BNV) | payer OTHER, SELFPAY | PROVIDERS: Emergency Provider Emergency Medicine; PCP Nurse Practitioner Family; Visit Provider Internal Medicine Cardiovascular Disease | DX: R94.31 Abnormal electrocardiogram [ECG] [EKG] (principal); R07.9 Chest pain, unspecified | CPT/HCPCS: 93010 ==

== ENCOUNTER → 2024-09-20 11:13 | Outpatient (BNV) | payer OTHER, SELFPAY | PROVIDERS: PCP Nurse Practitioner Family; Visit Provider Radiology Diagnostic Radiology | DX: R07.9 Chest pain, unspecified (principal) | CPT/HCPCS: 71046 ==